=== PATIENT | female | born 2000 | race Caucasian/White ===

== ENCOUNTER → 2019-12-06 10:21 | Outpatient (BNVA) | payer MEDICAID, SELFPAY | PROVIDERS: Visit Provider Nurse Practitioner Women's Health | DX: O99.013 Anemia complicating pregnancy, third trimester (principal) | CPT/HCPCS: 82950; 84315; 85025 ==

== ENCOUNTER → 2019-12-19 15:04 | Outpatient (BNVA) | payer MEDICAID, SELFPAY | PROVIDERS: Visit Provider Obstetrics & Gynecology | DX: Z34.90 Encounter for supervision of normal pregnancy, unspecified, unspecified trimester (principal) | CPT/HCPCS: 81003; 84315 ==

== ENCOUNTER → 2020-01-03 14:07 | Outpatient (BNVA) | payer MEDICAID, SELFPAY | PROVIDERS: Visit Provider Obstetrics & Gynecology Female Pelvic Medicine and Reconstructive Surgery | DX: Z34.90 Encounter for supervision of normal pregnancy, unspecified, unspecified trimester (principal) | CPT/HCPCS: 81003 ==

== ENCOUNTER → 2020-01-17 14:36 | Outpatient (BNVA) | payer MEDICAID, SELFPAY | PROVIDERS: Visit Provider Obstetrics & Gynecology Female Pelvic Medicine and Reconstructive Surgery | DX: Z34.03 Encounter for supervision of normal first pregnancy, third trimester (principal) | CPT/HCPCS: 81003 ==

== ENCOUNTER → 2020-01-30 10:53 | Outpatient (BNVA) | payer MEDICAID, SELFPAY | PROVIDERS: Visit Provider Obstetrics & Gynecology | DX: Z34.03 Encounter for supervision of normal first pregnancy, third trimester (principal) | CPT/HCPCS: 84315; 87081 ==

== ENCOUNTER 2020-02-05 16:53 | Observation (INO) | payer MEDICAID, SELFPAY ==
[2020-02-05 17:10] VITALS: BP 0/0; PULSE 80
[2020-02-05 17:12] VITALS: BP 114/63; PULSE 79
[2020-02-05 17:25] VITALS: BMI 29.7
[2020-02-05 18:52] VITALS: BP 131/61; PULSE 75
[2020-02-05 19:43] VITALS: BP 131/65; PULSE 75; RESP 16; TEMP 36.5
[2020-02-06 06:26] LABS: Nitrazine Paper, PH Negative
== END 2020-02-05 19:50 | disposition home or self-care (01) ==
PROVIDERS: Admitting Provider Obstetrics & Gynecology; Visit Provider Obstetrics & Gynecology
DX: O26.899 Other specified pregnancy related conditions, unspecified trimester (principal); Z3A.00 Weeks of gestation of pregnancy not specified; R10.9 Unspecified abdominal pain
CPT/HCPCS: 83986; 99211; G0378; G0379

== ENCOUNTER → 2020-02-06 08:22 | Outpatient (BNVA) | payer MEDICAID, SELFPAY | PROVIDERS: Visit Provider Obstetrics & Gynecology | DX: Z01.89 Encounter for other specified special examinations (principal) | CPT/HCPCS: 84315 ==

== ENCOUNTER 2020-02-11 15:30 | Inpatient (IN) | payer MEDICAID, SELFPAY ==
[2020-02-11] VITALS (26 sets, daily range): BP systolic 0–128; BP diastolic 0–79; PULSE 43–118; RESP 16–25; TEMP 36.3–37; O2SAT 67–100; BMI 29.5
[2020-02-11] MEDS: lactated ringers 1,000 ML 999 ML IV (15:30)
[2020-02-11] MEDS: terbutaline 1 mg/mL INJ 0.25 MG SUBCUT (15:38)
[2020-02-11] MEDS: citric acid-sodium citrate 30 mL UDC PO (15:57)
[2020-02-11] MEDS: metoclopramide 5 mg/mL SDV 2 mL 10 MG IVP (15:58)
[2020-02-11] MEDS: famotidine 20 mg/2 mL INJ IVP (15:58)
--- NOTE | 2020-02-11 16:04 | P.HP_ITS ---
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 She presented to labor and delivery with the complaint of abdominal and low back pain. She states she had been having contractions for the last 2 to 3 days but they became severe today. She states the pain she is having is more constant than coming and going. She describes it a 10 out of 10 in intensity. It is present in her lower abdomen and into her lower back. She denied vaginal bleeding. She denied leaking of fluid. She reported baby had been moving well. PAST MEDICAL HISTORY: Patient denies any medical problems in the way of high blood pressure, diabetes, heart, lung, liver, or kidney problems. PAST SURGICAL HISTORY: Tonsillectomy FAMILY HISTORY: Family history of hypertension, diabetes, and coronary artery disease. SOCIAL HISTORY: Patient denies tobacco, current alcohol, or drug use. Review of Systems Const: Denies: fever or chills ENMT: Denies: throat pain or nasal congestion Card: Denies: chest pain, palpitations or lightheadedness Resp: Denies: shortness of breath, productive cough, non-productive cough or wheezing GI: Reports: abdominal pain; Denies: nausea or vomiting : Denies: painful urination, genital itching, vaginal bleeding or vaginal discharge Neuro: Denies: headache, dizziness or seizure-like activity Psych: Denies: anxiety or depression Endo: Denies: excessive urination or excessive thirst Huseyin/Lymph: Denies: easy bruising or easy bleeding Medications/Allergies Allergies Allergy/AdvReac Type Severity Reaction Status Date / Time No Known Allergies Allergy Verified 02/06/20 08:01 Care RIGO Calculator Estimated Delivery Date Method Current WG Current Estimate 02/26/20 Ultrasound #2 37w 6d Other Estimates 12/26/19 Ultrasound #1 46w 5d Expected Delivery Route/Plan Vaginal Specific Issues/Plans * Anemia-on iron OB Visit Log Initial Weight: 161 lb Date -?-?-?-?-?-?-?-?-?-?-?- EGA Weight BP Albumin -?-?-?-?-?-?-?-?-?-?-?-?- Glucose Nitrate -?-?-?-?-?-?-?-?-?-?-?-?- Blood Fun Ht PRES HR MVMT -?-?-?-?-?-?-?-?-?-?-?-?- Edema Dilation Effacement -?-?-?-?-?-?-?-?-?-?-?- Station 07/18/19 -?-?-?-?-?-?-?-?-?--?-?- 8w 1d (-161 lb) -?-?-?-?-?-?-?-?-?-?-?-?- -?-?-?-?-?-?-?-?-?-?-?-?- -?-?-?-?-?-?-?-?-?-?-?-?- -?-?-?-?-?-?-?-?-?-?-?- 08/01/19 -?-?-?-?-?-?-?-?-?-?-?- 10w 1d 159 lb (-2 lb) 122/70 NORMAL NEGATIVE -?-?-?-?-?-?-?-?-?-?-?-?- NEGATIVE -?-?-?-?-?-?-?-?-?-?-?-?- 173BPM/PRESENT BY GWENDOLYN -?-?-?-?-?-?-?-?-?-?-?-?- NEGATIVE NOT EXAMINED -?-?-?-?-?-?-?-?-?-?-?- 08/08/19 -?-?-?-?-?-?-?-?-?-?-?- 11w 1d 159 lb 6.08 oz (-1 lb 9.92 oz) 122/82 NORMAL NEGATIVE -?-?-?-?-?-?-?-?-?-?-?-?- NEGATIVE -?-?-?-?-?-?-?-?-?-?-?-?- 165BPM/ PRESENT BY GWENDOLYN -?-?-?-?-?-?-?-?-?-?-?-?- NEGATIVE -?-?-?-?-?-?-?-?-?-?-?- 08/18/19 -?-?-?-?-?-?-?-?-?-?-?- 12w 4d 157 lb (-4 lb) 120/72 NORMAL NEGATIVE -?-?-?-?-?-?-?-?-?-?-?-?- NEGATIVE -?-?-?-?-?-?-?-?-?-?-?-?- 158BPM/PRESENT BY DOPTONE -?-?-?-?-?-?-?-?-?-?-?-?- NEGATIVE CLOSED UNEFFACED -?-?-?-?-?-?-?-?-?-?-?- 09/14/19 -?-?-?-?-?-?-?-?-?-?-?- 16w 3d 157 lb 4 oz (-3 lb 12 oz) 111/68 NORMAL NEGATIVE -?-?-?-?-?-?-?-?-?-?-?-?- NEGATIVE -?-?-?-?-?-?-?-?-?-?-?-?- 164BPM/PRESENT BY DOPTONE NO T DETECTED -?-?-?-?-?-?-?-?-?-?-?-?- NEGATIVE -?-?-?-?-?-?-?-?-?-?-?- 10/11/19 -?-?-?-?-?-?-?-?-?-?-?- 20w 2d 157 lb (-4 lb) 120/80 NORMAL NEGATIVE -?-?-?-?-?-?-?-?-?-?-?-?- NEGATIVE -?-?-?-?-?-?-?-?-?-?-?-?- 147BPM/PRESENT BY DOPTONE TN ESENT -?-?-?-?-?-?-?-?-?-?-?-?- NEGATIVE -?-?-?-?-?-?-?-?-?-?-?- 11/08/19 -?-?-?-?-?-?-?-?-?-?-?- 24w 2d 160 lb 6.4 oz (-9.6 oz) 118/68 NORMAL NEGATIVE -?-?-?-?-?-?-?-?-?-?-?-?- NEGATIVE -?-?-?-?-?-?-?-?-?-?-?-?- 23CM 143BPM/PRESENT BY REJIE TN ESENT -?-?-?-?-?-?-?-?-?-?-?-?- NEGATIVE -?-?-?-?-?-?-?-?-?-?-?- 12/06/19 -?-?-?-?-?-?-?-?-?-?-?- 28w 2d 164 lb (+3 lb) 118/62 -?-?-?-?-?-?-?-?-?-?-?-?- -?-?-?-?-?-?-?-?-?-?-?-?- 30.5CM 146BPM/PRESENT BY GWENDOLYN P RESENT -?-?-?-?-?-?-?-?-?-?-?-?- NEGATIVE -?-?-?-?-?-?-?-?-?-?-?- 12/19/19 -?-?-?-?-?-?-?--?-?-?-?- 30w 1d 166 lb 4 oz (+5 lb 4 oz) 122/82 NEGATIVE NEGATIVE -?-?-?-?-?-?-?-?-?-?-?-?- NEGATIVE -?-?-?-?-?-?-?-?-?-?-?-?- 29CM 175BPM/PRESENT BY DOPTONE -?-?-?-?-?-?-?-?-?-?-?-?- NEGATIVE -?-?-?-?-?-?-?-?-?-?-?- 01/03/20 -?-?-?-?-?-?-?-?-?-?-?- 32w 2d 170 lb (+9 lb) 110/70 -?-?-?-?-?-?-?-?-?-?-?-?- -?-?-?-?-?-?-?-?-?-?-?-?- 33CM 132BPM/PRESENT BY GWENDOLYN JORGENSEN -?-?-?-?-?-?-?-?-?-?-?-?- NEGATIVE -?-?-?-?-?-?-?-?-?-?-?- 01/14/20 -?-?-?-?-?-?-?-?-?-?-?- 33w 6d -?-?-?-?-?-?-?-?-?-?-?-?- -?-?-?-?-?-?-?-?-?-?-?-?- -?-?-?-?-?-?-?-?-?-?-?-?- -?-?-?-?-?-?-?-?-?-?-?- 01/17/20 -?-?-?-?-?-?-?-?-?-?-?- 34w 2d 167 lb (+6 lb) 110/70 neg -?-?-?-?-?-?-?-?-?-?-?-?- neg -?-?-?-?-?-?-?-?-?-?-?-?- 34 136 Present -?-?-?-?-?-?-?-?-?-?-?-?- negative Not examined -?-?-?-?-?-?-?-?-?-?-?- 01/30/20 -?-?-?-?-?-?-?-?-?-?-?- 36w 1d 173 lb (+12 lb) 106/70 Neg (Negative ) -?-?-?-?-?-?-?-?-?-?-?-?- Norm (Normal) Negative (Negat ryan) -?-?-?-?-?-?-?-?-?-?-?-?- Neg (Negative) 36 Cephalic 134 active -?-?-?-?-?-?-?-?-?-?-?-?- absent Closed 0 -?-?-?-?-?-?-?-?-?-?-?- -3 02/01/20 -?-?-?-?-?-?-?-?-?-?-?- 36w 3d -?-?-?-?-?-?-?-?-?-?-?-?- -?-?-?-?-?-?-?-?-?-?-?-?- -?-?-?-?-?-?-?-?-?-?-?-?- -?-?-?-?-?-?-?-?-?-?-?- 02/06/20 -?-?-?-?-?-?-?-?-?-?-?- 37w 1d 172 lb (+11 lb) 110/80 Neg (Negative ) -?-?-?-?-?-?-?-?-?-?-?-?- Norm (Normal) Negative (Negat ryan) -?-?-?-?-?-?-?-?-?-?-?-?- 1+ (Negative) H 37 Cephalic 147 active -?-?-?-?-?-?-?-?-?-?-?-?- absent 1.5 60 -?-?-?-?-?-?-?-?-?-?-?- -2 02/11/20 -?-?-?-?-?-?-?-?-?-?-?- 37w 6d 0/0 0/0 104/67 -?-?-?-?-?-?-?-?-?-?-?-?- -?-?-?-?-?-?-?-?-?-?-?-?- -?-?-?-?-?-?-?-?-?-?-?-?- -?-?-?-?-?-?-?-?-?-?-?- Notes Visit Date: 02/11/20 No visit notes to display Visit Date: 02/06/20 LORA@ 37w1d-----> mild anemia compliant with [id number] will accept a transfusion if needed; labor consents reviewed; plans on trying to get- Tdap and flu vaccine today; GBS negative; labor precautions reviewed-favorable cervix Antonette Goldberg MD on 02/06/20 Visit Date: 02/01/20 No visit notes to display Visit Date: 01/30/20 LORA@ 36w1d-----> discomforts of -symptomatic management reviewed; GBS done; encourage ambulation after 37 weeks; contraception, Tdap, faculty physician reviewed Antonette Goldberg MD on 02/05/20 Visit Date: 01/17/20 Patient is doing well we did discuss signs and symptoms of labor and when to need to return to labor and delivery. ?We discussed potential development of a birthing plan discussed the need to attend anesthesia consult and recommend she tour labor and delivery. Patient is to return in 2 weeks to check group B strep. Visit Date: 01/14/20 PRELOAD NOTE Roxi Mars RN on 01/14/20 Visit Date: 01/03/20 [facility]A @ 32w3d - labor precautions and kick counts discussed - Discussed and encouraged flu and Tdap - education classes discussed and encouraged - Anesthesia evaluation discussed and encouraged - care handout provided. RTC: 2 weeks Visit Date: 12/19/19 No visit notes to display Visit Date: 12/06/19 [facility] @ 28w3d - labor precautions and kick counts discussed - Discussed and encouraged flu and Tdap by 32 weeks - education classes discussed and encouraged - Anesthesia evaluation discussed and encouraged - [place] care handout provided. - Depression; scored 10 on EDPS today; doing well without medication - GCT, CBC today. Visit Date: 11/08/19 LORA @ 24.3 WG - Flu vaccine discussed and encouraged. - labor precautions and kick counts discussed. - education classes discussed and encouraged; schedule provided. - Symptomology of late second trimester discussed - CBC, GCT at next visit. O positive blood type Visit Date: 10/11/19 L[facility]A @ 20w3d------> no complaints; anatomy sonogram within normal limits; circumcision, contraception, faculty physician discussed; movements reviewed; questions answered Visit Date: 09/14/19 [facility] at 16-4/7 WG. ?Reports still having some nausea - usual course for nausea and vomiting discussed. ?Reports occasional headaches - headache treatments discussed. ?Flu vaccine recommended. ?Quad screen discussed and declined. ?Ultrasound for anatomic survey in approximately 4 weeks. Visit Date: 08/18/19 OB exam at 12w5d------> no complaints ; labs within normal limits; gonorrhea and Chlamydia done today; quad screen if desires at next visit Visit Date: 08/08/[address] visit @ 11w2d-----> no complaints-first trimester symptomatology discussed with patient; breast-feeding, blood transfusion, control discussed; labs discussed and drawn-patient undecided about panorama and cystic fibrosis; gonorrhea and Chlamydia at next visit; dating ultrasound reviewed with patient. Visit Date: 08/01/19 OBI @ 10.2 WG---------> 19 y/o with a unknown LMP, EDC of 02/25/2020 based on 6 week ultrasound. - Irregular menses; ultrasound confirms IUP and sets EDC - Unknown varicella hx; collect IgG with labs - Constipation; dietary and medical management discussed - Nausea; dietary and medical management discussed ? -Ob packet provided. Reviewed routine vist schedule, labs, approved medications in , discussed the importance of avoiding nicotine/alcohol/drugs and the effects this has on her and the , and when to notify the doctor. Medical and obstetrical history reviewed. ? -Continue vitamins. - labs at next visit; discussed NIPT, QUAD, AFP, CF. All questions answered to her satisfaction. Greater than 50% of the visit was spent in counseling and coordinating obstetrical care. Total visit time: 30 minutes. Visit Date: 07/18/19 No visit notes to display Vitals/I&O/Wt Last Vital Signs Pulse 53 L 02/11/20 15:29 BP 104/67 02/11/20 15:29 Pulse Ox 67 L 02/11/20 15:44 Weight 172 pounds, stated height 5 foot 4 inches: Physical Exam Const: COMMON NORMALS: average body habitus, alert and well nourished GENERAL APPEARANCE: cooperative and well developed ORIENTATION/CONSCIOUSNESS: Yes oriented to person, Yes oriented to place and Yes oriented to time Resp: COMMON NORMALS: normal respiratory effort and clear to auscultation bilaterally AUSCULTATION: clear to auscultation bilaterally Cardio: COMMON NORMALS: regular rate, regular rhythm, no gallops, no murmurs and no rub RATE: regular rate RHYTHM: regular rhythm GI: COMMON NORMALS: soft to palpation, non-tender, no hepatosplenomegaly and no masses (Except for gravid uterus.) AUSCULTATION: Yes normoactive bowel sounds PALPATION: Yes soft, Yes no hepatosplenomegaly and No hernia : EXTERNAL FEMALE EXAM: No hernia OTHER: - External genitalia: Normal in appearance with no lesions seen. Normal hair distribution. Anus/perineum: No perineal lesions noted. Urethral meatus: Normal in size and location with no lesions or prolapse noted Urethra: Nontender with no palpable masses noted. Bladder: Nontender with no palpable masses noted. Vagina: No palpable masses. No blood noted on exam. Cervix: 75% effaced, 2 cm dilated, soft. Membranes intact. Uterus: Mildly tender. Neuro: SENSORIUM/ORIENTATION: Yes alert, Yes oriented to person, Yes oriented to place and Yes oriented to time Psych: COMMON NORMALS: affect normal MOOD & AFFECT: Yes euthymic mood Skin: COMMON NORMALS: no rashes or lesions noted GENERAL SKIN EXAM: no rashes or lesions noted Data Other data: MONITORING: On initial admission to the unit and placement on the monitoring heart rate was in the 90s and lower. After approximately 6 minutes heart rate was back up to the 140s and it slowly increased up to the 150s. She continued to have decelerations. Contractions were not being able to nut picker due to patient position. She had minimal to no variability. Due to the possibility of hyperstimulation, she received a dose of Brethine which did not appear to affect contractions heart rate increased to the 160s to 170s following the Brethine. A&P Assessment and plan (1) Non-reassuring heart tones complicating , antepartum: at 37-6/7 weeks gestation. She has nonreassuring heart tones. Initially had a several minute deceleration and has now been having recurrent decelerations but I am unable to determine if these are lates or not as contractions or not being adequately picked up. She has been tried with Brethine with no significant change. She had been placed on oxygen and received fluid bolus. Decelerations have decreased but patient has had minimal to no variability. As a result, recommendations are to proceed to a section. Risks of surgery was discussed with the patient including bleeding, infection, and injury to intra-abdominal organs including bowel, bladder, blood vessels, nerves, and ureters. Questions were answered. Patient agrees to proceed with c esarean section. Status: Acute Code(s): O36.8390 - Maternal care for abnormalities of the heart rate or rhythm, unspecified trimester, not applicable or unspecified Attestations Medical Necessity Statement*: Patient admitted for labor and having a Coding Level of Care Code Acute Oncology Physician for Chg Fwd Diagnoses Non-reassuring heart tones complicating , antepartum O36.8390
[2020-02-11 16:09] LABS: Basophils # 0.1 10^3/uL (0.0-0.1); Basophils % 0.2 %; Eosinophils # 0.2 10^3/uL (0.0-0.8); Hematocrit 36.5 % (37.0-47.0); Lymphocytes # 2.6 10^3/uL (1.5-6.5); Lymphocytes % 12.7 %; Mean Corpuscular HGB Conc 30.1 g/dL (30.0-36.0); Mean Corpuscular Hemoglobin 25.8 pg (28.0-34.0); Mean Corpuscular Volume 85.7 fL (81-99); Mean Platelet Volume 13.2 fL (7.4-10.4); Monocytes # 0.8 10^3/uL (0.2-0.9); Monocytes % 3.9 %; Neutrophils # 16.6 10^3/uL (1.8-8.0); Nucleated Red Blood Cells % 0 %; Platelet Count 179 10^3/cmm (130-400); Red Blood Count 4.26 10^6/uL (4.1-5.3); Red Cell Distribution Width 14.7 % (12.1-15.1); White Blood Count 20.5 10^3/uL (4.5-13.0)
--- NOTE | 2020-02-11 16:11 | ANES.PREANE2 ---
Pre-Anesthetic Assessment Pre-Anesthetic Assessment: Height/Weight: Height 1.63 m Pulse BP Pulse Ox 53 L 104/67 67 L 02/11/20 15:29 02/11/20 15:29 02/11/20 15:44 Preop Diagnosis: nonreassuring FHT Proposed Procedure: Last Intake: 10:00 Social: Social History: No alcohol and No tobacco Exam: Pre-Anes Outpt Exam: alert, oriented x 3, clear to auscultation bilaterally and regular rate & rhythm Airway: Submandibular: WNL Cervical ROM: WNL MP: 2 Dentition: Full History/ROS: No significant history except as noted and No significant complaints Pulmonary: Pulmonary: None reported CV/HEM: CV/HEM: None reported : : None reported Hepatic: Hepatic: None reported GI: GI: None reported Metabolic: Metabolic: None reported Musc/skel: Musc/skel: None reported Neuropsych: Neuropsych: None reported Anesthetic Plan: ASA status: 2 Anesthesia: Anesthesia Evaluation and Regional (specify below) Other: SAB Risk of > 500 ml blood loss (7ml/kg in children): Yes, adequate IV access and fluids planned Meds/Allergies Current Medications: Current Medications Generic Name Dose Route Start Last Admin Trade Name Freq PRN Reason Stop Dose Admin Lactated Ringer's 1,000 mls @ 999 m ls/hr 02/11/20 15:34 02/11/20 15:30 Lactated Ringers IV 02/11/20 16:34 999 mls/hr .Q1H1M ONE Administration PFSH Anesthesia PFSH: Social History Smoking and tobacco status: never smoked Alcohol intake: former Former alcohol use details: Social use once or twice monthly prior to preganncy. 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 Data Anesthesia Cardiac Studies: No Data to Display
[2020-02-11 16:47] LABS: Slide Review Slide Review Perform
--- NOTE | 2020-02-11 17:29 | PM.OP ---
Operative Report Date of procedure: February 11, 2020 Pre-op Diagnosis: Nonreassuring FHT in third trimester, at 37-6/7 weeks gestation Post-op Diagnosis: Nonreassuring heart tones, at 37-6/7 weeks gestation, Viable male Procedure Done: Primary low transverse section. Specimens removed/disposition: None Surgeon: Valentin Cedillo Medical Records Manager: None Anesthesia: Other (Spinal) Estimated blood loss (mL): 800 IV fluids (mL): 2,000 Complications: None Findings: 1. Viable, male infant, cephalic presentation, weighing 6 lbs 7-1/2 oz (2920 g) with Apgars of 2 at 1 minute, 7 at 5 minutes, and 7 at 10 minutes. 2. Normal appearing uterus, tubes, and ovaries. Brief History: Patient is a 19-year-old white female 1, para 0 with an unknown LMP and an EDC of 02/25/2020 based on a 6-week ultrasound, which placed her at 37-6/7 weeks gestation. She presented to labor and delivery with a complaint of lower abdominal and back pain. She stated she been having contractions for the last 2 to 3 days but they became severe earlier today. Pain was more constant now and located in the lower abdomen and lower back. She rated it as a 10 out of 10 in intensity. She denied bleeding or leaking of fluid. On initial placement of monitoring, heart rate was in the 90s and lower. After approximately 6 minutes the heart rate came back up to the 140s and slowly increased up to the 150s. She then had a very flat tracing with continued decelerations. The decelerations eventually went away but continued to have no variability with intermittent episodes of decelerations. Since she was still distant from delivery and due to the baby's heart rate being nonreassuring, decision was made to proceed to a section. Baby was looking better at the time it was taken off the monitor to go to the operating room. As a result decision was made to go proceed with a spinal for anesthesia. Procedure: Patient was taken to the operating room where spinal anesthesia was quickly obtained. On laying the patient down, heart rate was noted to be in the 60s. Patient was in dorsal supine position with a leftward tilt. Roth catheter and sequential compression boots had been placed prior to starting the case. Betadine was poured over the abdomen and drape placed. A Pfannenstiel skin incision was made with a knife and carried down to the underlying fascia with the knife. Fascia was incised in the midline with the knife and extended laterally with Fuller scissors. Superior aspect of the fascia was grasped with Everett clamps, elevated, and sharply and bluntly dissected. The inferior aspect of the fascia was grasped with Everett clamps, elevated, and sharply and bluntly dissected. The rectus muscles were in the midline. Peritoneum was sharply entered. Peritoneal incision was extended both superiorly and inferiorly with good visualization of the bladder. Bladder blade was inserted. The vesicouterine peritoneum was tented up and sharply entered. It was extended laterally and the bladder flap was created digitally. Bladder blade was reinserted. A transverse incision was made with the knife in the lower uterine segment. Clear fluid was obtained upon entry into the uterine cavity. The infant's head was delivered and one loop of loose nuchal cord was noted and easily reduced. The rest of the infant delivered atraumatically. Nose and mouth were suctioned with bulb suction. Cord was clamped and cut and the infant was handed off to Dr. Perae and the waiting nurses. Cord blood was obtained. Placenta was delivered via uterine massage. No evidence of abruption seen. Patient received 20 units of Pitocin in the IV fluids. The uterus was exteriorized and cleared of clots and debris. The uterine incision was closed in a running locking fashion using 0 Vicryl suture. The incision was imbricated using 0 Vicryl suture in a horizontal mattress fashion. The incision was inspected and noted to be hemostatic. Posterior cul-de-sac was thoroughly irrigated and cleared of clots and blood. The uterus was returned to the abdomen. The uterine incision was irrigated and noted to be hemostatic. The gutters were cleared of clots and blood. The rectus muscles and peritoneum were reapproximated in the midline using interrupted stitches of 2-0 Vicryl suture. The muscle layer was irrigated and noted to be hemostatic. The fascia was reapproximated using 0 Vicryl suture in a running fashion. The subcutaneous layer was irrigated and brought to hemostasis using electrocautery. It was reapproximated using 3-0 plain suture in an interrupted fashion. Skin was reapproximated using 4-0 Vicryl suture in a subcuticular fashion. Steri-Strips were applied. Patient tolerated the procedures well. Sponge, needle, and instrument counts were correct. Time was 16:23. Baby was delivered at 16:25. DRAINS: Roth catheter POSTOPERATIVE STATUS: The patient was left to recover in satisfactory condition
[2020-02-11 18:41] LABS: Amphetamines Screen Urine Negative (Negative); Barbiturates Screen Urine Negative (Negative); Benzodiazepines Screen Urine Negative (Negative); Cocaine Screen Urine Negative (Negative); Opiate Screen Urine Negative (Negative); PCP Screen Urine Negative (Negative); THC Screen Urine Negative (Negative)
--- NOTE | 2020-02-11 20:11 | PC.NURSE ---
Urgent section called at 1559 Room time of 1608 Spinal placed and patient laid back on to OR table Doppler of FHT at 1620- FHT noted to be in the 80s and then gradually decreased to 60s over 30 seconds STAT section called at this time by Dr Cedillo. Betadine x2 bottles poured over patient's abdomen, no time out performed. APGARS 2, 7, 7
[2020-02-11] MEDS: ketorolac 30 mg/mL INJ IVP (23:06)
[2020-02-11] MEDS: dextrose 5%-lactated ringers 1,000 ML 125 ML IV (23:06)
[2020-02-12 01:00] VITALS: BP 117/66; PULSE 71; RESP 18
[2020-02-12 02:30] VITALS: BP 119/77; PULSE 78; RESP 16
[2020-02-12 04:48] VITALS: BP 119/73; PULSE 71; RESP 16
[2020-02-12 07:36] LABS: Hematocrit 29.1 % (37.0-47.0); Mean Corpuscular HGB Conc 30.9 g/dL (30.0-36.0); Mean Corpuscular Hemoglobin 26.2 pg (28.0-34.0); Mean Corpuscular Volume 84.6 fL (81-99); Platelet Count 175 10^3/cmm (130-400); Red Blood Count 3.44 10^6/uL (4.1-5.3); Red Cell Distribution Width 14.6 % (12.1-15.1); White Blood Count 18.1 10^3/uL (4.5-13.0)
--- NOTE | 2020-02-12 07:46 | PM.PN ---
Subjective Subjective: Interval history: Patient reports some left shoulder discomfort this morning. Denies any shortness of breath or other chest pains. Denies lightheadedness or dizziness with ambulation. Reports tolerating clear liquids without nausea or vomiting. Reports pain is been well controlled with the Duramorph. Denies passing flatus. States catheter was taken out this morning. Vitals/I&O/Wt Last Vital Signs Temp 97.7 F 02/11/20 20:50 Pulse 71 02/12/20 04:48 Resp 16 02/12/20 04:48 BP 119/73 02/12/20 04:48 Pulse Ox 98 02/11/20 20:00 02/11/20 02/12/20 02/12/20 22:59 06:59 14:59 Intake Total 1999 Output Total 935 / 935 1760 / 2695 Balance 1065 / 1065 -1760 / -695 Weight last 48 hrs Weight 172 lb Physical Exam Const: COMMON NORMALS: no apparent distress, average body habitus, alert and well nourished GENERAL APPEARANCE: well developed ORIENTATION/CONSCIOUSNESS: Yes oriented to person, Yes oriented to place and Yes oriented to time GI: COMMON NORMALS: soft to palpation, non-tender, no hepatosplenomegaly and no masses (Except for uterus being approximately 2 fingerbreadths below the umbilicus) INSPECTION: Yes incision (Dressing dry) AUSCULTATION: Yes normoactive bowel sounds PALPATION: Yes soft, Yes no hepatosplenomegaly and No hernia : EXTERNAL FEMALE EXAM: No hernia Extremity: NARRATIVE EXTREMITY EXAM: Left shoulder: No tenderness with passive flexion, extension, abduction, or abduction. Reported tenderness with abduction and abduction with resistance. Also with pushing upwards on the shoulder resulted in tenderness. No tenderness of the actual joint with palpation or with palpation of the musculature. Neuro: SENSORIUM/ORIENTATION: Yes alert, Yes oriented to person, Yes oriented to place and Yes oriented to time Psych: COMMON NORMALS: affect normal MOOD & AFFECT: Yes euthymic mood Urinary Catheter Management^: Roth: Cath Placed During This Visit: yes, but has since been removed by the nurse Reason for Continuing Indwelling Catheter: Perioperative Use in Selected Surgeries Urinary Catheter Date of Insertion: 02/11/20 Urinary Catheter Time of Insertion: 16:20 Date Urinary Catheter Removed: 02/12/20 Time Urinary Catheter Discontinued: 06:00 Data : 02/12/20 07:15 A&P Assessment and plan (1) Non-reassuring heart tones, delivered, current hospitalization: Postoperative day 1, status post primary for nonreassuring heart tones. Overall, patient is doing well. Patient may increase activities as tolerated. May shower. Patient to be started on scheduled oral ibuprofen. As Duramorph wears off today, start [place]. Status: Acute Code(s): O76 - Abnormality in heart rate and rhythm complicating labor and delivery (2) Left shoulder pain: Based on exam, suspect musculoskeletal causes. Start scheduled anti-inflammatories. Status: Acute Code(s): M25.512 - Pain in left shoulder Attestations Medical Necessity Statement*: Patient is status post section, approximately 12 hours out from surgery. She is still not passing flatus and is on clear liquids. Coding Level of Care Code Acute Tube Tester for Javad Winchester Diagnoses Non-reassuring heart tones, delivered, current hospitalization O76 Left shoulder pain M25.512
[2020-02-12 08:00] VITALS: BP 106/68; PULSE 66; RESP 16; TEMP 36.8
[2020-02-12] MEDS: prenatal vitamin Capsule 1 CAP PO (09:29)
[2020-02-12] MEDS: docusate sodium 100 mg Capsule PO ×2 (09:29→17:03)
[2020-02-12] MEDS: HYDROcodone-acetaminophen 5-325 mg Tablet PO ×2 (10:25→17:03)
--- NOTE | 2020-02-12 10:30 | PC.NURSE ---
Pt in nursery with baby.
--- NOTE | 2020-02-12 11:24 | ANE.PACU2 ---
 Inpatient post-anesthesia follow up: Airway intact: Yes Vital signs: Temperature 98.3 F Pulse Rate 66 Respiratory Rate 16 Blood Pressure 106/68 Pulse Oximetry 98 Oxygen Delivery Me thod Room Air Oxygen Flow Rate Fraction of Inspir ed Oxygen Hydration adequate: Yes Nausea and vomiting: No Pain level: 2 Mental status: Baseline Additional Comments: No sign of infection at spinal site, no headache, up and walking without LE weakness, urinating since jurado removed
[2020-02-12 15:37] VITALS: BP 102/60; PULSE 71; RESP 16; TEMP 36.7
[2020-02-12 21:43] VITALS: BP 100/63; PULSE 87; RESP 16; TEMP 36.8; O2SAT 99
[2020-02-13 04:00] VITALS: BP 109/69; PULSE 76; RESP 15; TEMP 36.6; O2SAT 99
--- NOTE | 2020-02-13 07:03 | PM.DCS ---
Discharge Providers Date of Admission: 02/11/20 15:30 Date of Discharge: February 13, 2020 Attending Provider at Admission: Valentin Cedillo MD Attending Provider at Discharge: Valentin Cedillo MD Diagnoses at Discharge Discharge Diagnosis (1) Non-reassuring heart tones, delivered, current hospitalization: Status: Resolved (2) Left shoulder pain: Status: Resolved Reason for Visit Reason for Visit: Reason For Visit: contractions Hospital Course Hospital Course: Patient is a 19-year-old white female 1, para 0 with an unknown and an EDC of 02/25/2020 based on a 6-week ultrasound, which placed her at 37-6/7 weeks gestation. She had presented to labor and delivery with complaint of abdominal and lower pain. She states she been having contractions for the last 2 to 3 days but they became severe today. She she describes it as a constant pain that comes and goes in. As worst she rates it a 10 out of 10 in intensity. It is located in her lower abdomen radiating to her lower. Vaginal bleeding. She was reporting good movement. Placement of the patient on monitoring at arrival, heart rate was in the 90s and lower and this increased to 40s over the next 6 minutes with changes in position, high fluid bolus, and oxygen. Following this, there was minimal variability with repetitive mild decelerations which difficult to determine if these were late decelerations due to difficulty identifying contractions. The possibility of hyperstimulation, she received 1 dose of Brethine which did not appear to have any effect other than increased heart rate to the 160s to 170s. Due to the continued nonreassuring heart rate tracing, patient made to proceed to section. Prior to take the patient to the operating room, the monitoring had improved some with decelerations have gone away. As result, it was felt that patient could proceed with a spinal anesthetic rapidly placed. However, heart tones immediately after laying the patient down following spinal placement, heart rate was noted be again in the 60s and a was rapidly performed. Primary low transverse section was performed with the delivery of a male infant in a slight presentation weighing 6 lbs 7-1/2 oz (2920 g) with of 2 at 1 minute 7 at 5 minutes and 7 minutes. Fluid was clear at the time of with no evidence of abruption seen. Skin is intact with 16:23 with delivery time of 16:25. DAY 1 Patient reported left shoulder discomfort with pushing down on the arm. She denied any shortness of breath or other chest pain complaints. She denied lightheadedness or dizziness with ambulation. She reported tolerating liquids without nausea vomiting. She stated that her abdominal pain was well controlled with Duramorph. She denies he flatus. She was afebrile with stable vital signs. On examination of her left shoulder, she had discomfort with specific movements consistent with musculoskeletal pain. She was already receiving scheduled Toradol and was being switched scheduled Motrin. Roth catheter was removed that morning. Started passing flatus late in the day and diet was advanced. She was switched to oral pain medications later that day. DAY 2 Patient reports that her shoulder pain is doing better. States that the hydrocodone is not providing adequate pain relief. As a result, she was switched to Percocet and did better with this. She denies shortness of breath or chest pains. She reports tolerating a regular diet without nausea vomiting. She denies with urination. She reports passing flatus. She denies lightheadedness or dizziness with ambulation. She is requesting to be released from the hospital. Baby had been transferred to [facility] NICU in [place]. PHYSICAL EXAM See vitals and exam below. PLAN control options were discussed with patient and she wanted to start pills. Since she was (pumping), she was started on Bernadette. Discharge instructions were discussed with patient. She was to follow-up in the office in 2 and 6 weeks. She is discharged to home. Physical Exam Const: COMMON NORMALS: no apparent distress, average body habitus, alert and well nourished GENERAL APPEARANCE: well developed ORIENTATION/CONSCIOUSNESS: Yes oriented to person, Yes oriented to place and Yes oriented to time Resp: COMMON NORMALS: normal respiratory effort and clear to auscultation bilaterally AUSCULTATION: clear to auscultation bilaterally Cardio: COMMON NORMALS: regular rate, regular rhythm, no gallops, no murmurs and no rub RATE: regular rate RHYTHM: regular rhythm GI: COMMON NORMALS: soft to palpation, no hepatosplenomegaly and no masses (except for mildly tender uterus, ~ 2 fingerbreaths below navel) INSPECTION: Yes incision (clean, dry, intact with steri-strips present.) AUSCULTATION: Yes normoactive bowel sounds PALPATION: Yes soft, Yes tender (mild lower abdominal tenderness), Yes no hepatosplenomegaly and No hernia : EXTERNAL FEMALE EXAM: No hernia Extremity: GENERAL: No calf tenderness and Yes edema (trace to 1+ lower extremities) Neuro: SENSORIUM/ORIENTATION: Yes alert, Yes oriented to person, Yes oriented to place and Yes oriented to time Psych: COMMON NORMALS: affect normal MOOD & AFFECT: Yes euthymic mood Urinary Catheter Management^: Roth: Cath Placed During This Visit: yes, but has since been removed by the nurse Reason for Continuing Indwelling Catheter: Perioperative Use in Selected Surgeries Urinary Catheter Date of Insertion: 02/11/20 Urinary Catheter Time of Insertion: 16:20 Date Urinary Catheter Removed: 02/12/20 Time Urinary Catheter Discontinued: 06:00 Discharge Data Data Completed and Pending: Labs from last 24 hours 02/12/20 07:15 WBC 18.1 H RBC 3.44 L Hgb 9.0 L Hct 29.1 L MCV 84.6 MCH 26.2 L MCHC 30.9 RDW 14.6 Plt Count 175 MPV 13.0 H Vitals: Last Vital Signs Temp 97.8 F 02/13/20 04:00 Pulse 76 02/13/20 04:00 Resp 15 02/13/20 04:00 BP 109/69 02/13/20 04:00 Pulse Ox 99 02/13/20 04:00 Discharge Plan Discharge Patient Disposition: Home, Self-Care Condition: Stable Prescriptions: No Action No Known Home Medications RF: 0 norethindrone (contraceptive) [Brittany-BE] 0.35 mg tablet 0.35 mg PO DAILY Qty: 28 RF: 3 Discharge Orders: Discharge Order (Routine); Ordered 02/13/20 Ordered By: Valentin Cedillo Referrals: Valentin Cedillo MD [Physician] - 2 weeks (Please keep scheduled appointment on Wednesday, February 26, 2020 at 11:30 AM for your 2 week incision check with Dr. Cedillo. ) Antonette Goldberg MD [Physician] - 6 Weeks (Please keep scheduled appointment on Wednesday, March 25, 2020 at 10:30 AM for [address] up [address] Hollis. ) Discharge Diet: Regular Discharge Activity: Limit activity as instructed Patient Instructions: OB WHC, OB Discharge Report, OB Food/Drug Interaction Guide, OB Care at Home, OB Home Care, OB Proud Parent Packet Activity Restrictions/Additional Instructions: Ibuprofen 200 mg, 4 tablets three times a day as needed for pain MiraLax, follow instructions on bottle, as needed for constipation Had Rx for Percocet sent to pharmacy from office. Discharge Date/Time: 02/13/20 08:40 Discharge Attestations Time Spent in Discharge Care*: less than 30 min Quality Metrics Clinical Quality Measures During this hospital stay, did patient experience: None Coding Level of Care Code Acute Electrolytic De Scaler for Chg Fwd Diagnoses Non-reassuring heart tones, delivered, current hospitalization O76 Left shoulder pain M25.512
[2020-02-13] MEDS: prenatal vitamin Capsule 1 CAP PO (08:14)
[2020-02-13] MEDS: lanolin oint 7 gm 1 APPLIC TOPICAL (08:14)
[2020-02-13] MEDS: docusate sodium 100 mg Capsule PO (08:14)
[2020-02-13 08:16] VITALS: BP 102/69; PULSE 116; RESP 18; O2SAT 99
== END 2020-02-13 08:40 | disposition home or self-care (01) | DRG 788 ==
LOC: OBGYN 02-12 09:40 → OPOB 02-12 09:40
PROVIDERS: Admitting Provider Obstetrics & Gynecology; Visit Provider Obstetrics & Gynecology
PROC: 10D00Z1 Extraction of Products of Conception, Low, Open Approach (ICD-10-PCS; CPT 59514; principal; 2020-02-11 16:05)
DX: O76 Abnormality in fetal heart rate and rhythm complicating labor and delivery (principal); Z3A.37 37 weeks gestation of pregnancy; Z37.0 Single live birth; O69.81X0 Labor and delivery complicated by cord around neck, without compression, not applicable or unspecified
CPT/HCPCS: 12345; 36415; 51702; 59409; 80306; 85025; 85027; 96372; 96375; 99211; J0690; J1885; J2274; J2405; J2590; J2765; J3010; J3105; J3490; J7030

== ENCOUNTER → 2020-08-07 16:35 | Outpatient (BNVA) | payer MEDICAID, SELFPAY | PROVIDERS: Visit Provider Nurse Practitioner Women's Health | DX: Z01.419 Encounter for gynecological examination (general) (routine) without abnormal findings (principal) | CPT/HCPCS: 88175 ==

== ENCOUNTER → 2021-04-02 10:17 | Outpatient (BNVA) | payer BC, SELFPAY | PROVIDERS: Visit Provider Nurse Practitioner Women's Health | DX: N92.6 Irregular menstruation, unspecified (principal); Z30.42 Encounter for surveillance of injectable contraceptive | CPT/HCPCS: 84702 ==

== ENCOUNTER 2021-07-23 11:05 | Emergency (ER) | payer BC, SELFPAY ==
[2021-07-23 11:14] VITALS: BP 133/84; PULSE 79; RESP 16; TEMP 36.6; O2SAT 98; BMI 24.4
--- NOTE | 2021-07-23 11:21 | XR_ITS ---
WS: [id number] Portable AP upright chest, 07/23/2021 Clinical Data: pain left side of chest, chronic Comparison: None. Findings: No nodules, masses or effusions are seen. The heart is normal. The pulmonary vascularity is not increased. No pneumonia or pneumothorax is seen. XR/XR chest 1V portable [id number] Impression: Negative chest.
--- NOTE | 2021-07-23 11:22 | W.ED.GENADLT ---
HPI - General Adult General: Chief complaint: General Medical Stated complaint: CHRONIC intermittent chest pain Time Seen by Provider: 07/23/21 11:17 History of Present Illness: HPI narrative: Patient describes chest pain in the left lateral aspect of her chest been present since she was a young girl that happened intermittently over the years. She made through and had pain at times but none reported to her provider. Says she would just want to get checked out make sure there is nothing else going on serious in that area. Hurts with deep breaths MD complaint: Atypical chest pain Onset (ago): year(s) Location: chest Radiation: non-radiation Severity scale (1-10): 1 Quality: stabbing Pain Consistency: colicky Relieving factors: none Exacerbating factors: other (Breathing) Associated symptoms: Reports no associated symptoms; Deny chest pain, dyspnea, headache(s), nausea, rash or vomiting Review of Systems Narrative: Chest wall pain times year intermittent Const: Denies: fever(s), chills or body aches Eyes: Denies: change in vision or blurry vision ENMT: Denies: throat pain or nasal congestion Card: Denies: chest pain or dyspnea on exertion Resp: Denies: dyspnea, productive cough or non-productive cough GI: Denies: abdominal pain, nausea or vomiting Musc: Denies: extremity pain Skin/Breast: Denies: rash Neuro: Denies: headache(s) Psych: Denies: anxiety or depression Huseyin/Lymph: Denies: easy bruising PFSH ED PFSH: Medical History (Updated 04/02/21 @ 10:17 by Zandra Clark APN, CECI) Irregular menses No pertinent past medical history Denies diabetes, asthma, seizures, DVT/PE, hypertension Surgical History History of section, low transverse (~02/11/20) Primary lower transverse with Dr. Cedillo at [facility] in [facility]. Done for nonreassuring heart tracing. 2 layer closure. Hx of tonsillectomy (~2004) Family History (Updated 04/02/21 @ 09:38 by Yoon Almazan) Grandfather Diabetes PATERNAL Hypertension Maternal Grandmother Hypertension PATERNAL AND MATERNAL Diabetes MATERNAL CAD (coronary artery disease) MATERNAL Family/Other Patient denies medical problems Breast, cervical, uterine, ovarian, colon cancer, DVT/PE Diabetes Denies family history of Thyroid disease Stroke Social History Additional social history: - Tobacco use: Denies current or past use Alcohol use: Social alcohol use once or twice a month prior to finding out she is -none since then Drug use: Denies current or past use 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 Female Reproductive History: Date of last menstrual period: 07/08/21 Physical Exam Const: COMMON NORMALS: no acute distress, average body habitus and patient oriented x3 HENMT: COMMON NORMALS: normocephalic HEAD & SCALP: normal to inspection and normocephalic FACE & SINUS: normal facial exam Eye: COMMON NORMALS: conjunctivae normal GENERAL EYE: appearance normal, both eyes and all related structures CONJUNCTIVA: Yes conjunctivae normal Neck/C-Spine: COMMON NORMALS: no JVD Chest: COMMONS NORMALS: normal inspection of the chest OTHER: Tenderness left chest wall lateral to the breast on left side Resp: COMMON NORMALS: normal respiratory effort and clear to auscultation bilaterally AUSCULTATION: clear to auscultation bilaterally Cardio: COMMON NORMALS: no JVD, regular rate and regular rhythm RATE: regular rate RHYTHM: regular rhythm GI: COMMON NORMALS: Normal to inspection, nondistended, normoactive bowel sounds present Extremity: COMMON NORMALS: normal to inspection and full ROM Neuro: COMMON NORMALS: patient oriented x3 Course Vital Signs: Vital signs: Vital Signs Temperature 97.9 F 07/23/21 11:14 Pulse Rate 79 07/23/21 11:14 Respiratory Rate 16 07/23/21 11:14 Blood Pressure 133/84 07/23/21 11:14 Pulse Oximetry 98 07/23/21 11:14 Discharge Plan Discharge Prescriptions: No Action medroxyprogesterone [Depo-Provera] 150 mg/mL suspension IM RF: 0 Coding Level of Care Code ED Equine Dentist for Chg Ranulfo
[2021-07-23 12:03] LABS: Basophils % 0.5 %; Eosinophils # 0.1 10^3/uL (0.0-0.8); Eosinophils % 0.8 %; Hematocrit 42.2 % (37.0-47.0); Hemoglobin 13.2 g/dL (11.5-15.3); Lymphocytes # 2.8 10^3/uL (0.8-4.8); Lymphocytes % 33.2 %; Mean Corpuscular HGB Conc 31.3 g/dL (30.0-36.0); Mean Corpuscular Hemoglobin 25.9 pg (28.0-34.0); Mean Corpuscular Volume 82.9 fl (81-99); Mean Platelet Volume 10.6 fL (7.4-10.4); Monocytes # 0.5 10^3/uL (0.2-0.9); Monocytes % 6.4 %; Neutrophils # 5.01 10^3/uL (1.8-7.7); Neutrophils % 58.9 %; Nucleated Red Blood Cells % 0 %; Platelet Count 321 10^3/cmm (130-400); Red Blood Count 5.09 10^6/uL (4.1-5.3); Red Cell Distribution Width 15.1 % (12.1-15.1); White Blood Count 8.5 10^3/uL (4.0-10.0)
== END 2021-07-23 12:48 | disposition home or self-care (01) ==
PROVIDERS: Emergency Provider Nurse Practitioner Family
DX: R07.9 Chest pain, unspecified (principal)
CPT/HCPCS: 71045; 85025; 99282

== ENCOUNTER → 2022-03-24 11:29 | Outpatient (BNVA) | payer OTHER, SELFPAY | PROVIDERS: PCP Family Medicine; Visit Provider Family Medicine | DX: E01.0 Iodine-deficiency related diffuse (endemic) goiter (principal) | CPT/HCPCS: 84439; 84443; 85025 ==

== ENCOUNTER 2022-03-26 06:00 | Outpatient (CLI) | payer OTHER, SELFPAY | END 2022-03-26 06:01 | disposition home or self-care (01) | LOC: SPT 04-01 07:11 | PROVIDERS: PCP Family Medicine; Referring Provider Family Medicine; Visit Provider Family Medicine | DX: Z02.1 Encounter for pre-employment examination (principal) | CPT/HCPCS: 97161 ==

== ENCOUNTER 2023-05-06 08:55 | Outpatient (CLI) | payer MEDICAID, SELFPAY | END 2023-05-06 08:56 | disposition home or self-care (01) | PROVIDERS: Visit Provider Nurse Practitioner Women's Health | DX: Z34.03 Encounter for supervision of normal first pregnancy, third trimester (principal); Z72.51 High risk heterosexual behavior | CPT/HCPCS: 36415; 84702; 87491; 87591; 87661 ==

== ENCOUNTER → 2023-08-05 14:00 | Outpatient (BNVA) | payer MEDICAID, SELFPAY | PROVIDERS: Visit Provider Nurse Practitioner Women's Health | DX: Z12.4 Encounter for screening for malignant neoplasm of cervix (principal) | CPT/HCPCS: 88175 ==

== ENCOUNTER 2025-02-15 11:04 | Emergency (ER) | payer OTHER, SELFPAY ==
[2025-02-15] VITALS (7 sets, daily range): BP systolic 106–121; BP diastolic 64–74; PULSE 71–135; RESP 17–18; TEMP 36.4; O2SAT 95–100; BMI 30.9
[2025-02-15 12:39] LABS: Basophils % 0.2 %; Eosinophils # 0.4 10^3/uL (0.0-0.8); Eosinophils % 1.6 %; Hematocrit 48.6 % (36-47); Lymphocytes # 2.3 10^3/uL (0.8-4.8); Lymphocytes % 9.9 %; Mean Corpuscular HGB Conc 31.3 g/dL (30-55); Mean Corpuscular Hemoglobin 27.1 pg (27-33); Mean Corpuscular Volume 86.6 fl (85-98); Mean Platelet Volume 10.8 fL (7.4-10.4); Monocytes # 1.4 10^3/uL (0.2-0.9); Monocytes % 6.2 %; Neutrophils # 18.98 10^3/uL (1.8-7.7); Neutrophils % 81.7 %; Nucleated Red Blood Cells % 0 %; Platelet Count 326 10^3/cmm (157-399); Red Blood Count 5.61 10^6/uL (3.85-5.65); Red Cell Distribution Width 13.6 % (12.1-15.1); White Blood Count 23.21 10^3/uL (3.29-11.43)
[2025-02-15 12:42] LABS: HCG, Serum Qual Negative (Negative)
[2025-02-15 12:47] LABS: Alanine Aminotransferase 14 U/L (0-33); Albumin Level 4.4 g/dL (3.5-5.2); Alkaline Phosphatase 76 U/L (35-105); Blood Urea Nitrogen 11 mg/dL (6-20); Calcium 9.1 mg/dL (8.5-10.5); Carbon Dioxide 13 mmol/L (22-29); Chloride 107 mmol/L (98-107); Creatinine Clr Calc Pharmacy 126.9951; Globulin 3.2 g/dL (1.3-4.6); Glucose 103 mg/dL (65-115); Lipase 20 U/L (13-60); Osmolality Calculated 282 mOsm/kg (285-295); Sodium 136 mmol/L (136-145); Total Bilirubin 0.4 mg/dL (0.15-1.2); Total Protein 7.6 g/dL (6.6-8.7)
[2025-02-15 12:51] LABS: Anion Gap 20.3 (5-19); Aspartate Amino Transferase 21 U/L (0-32); Potassium 4.3 mmol/L (3.5-5.1)
--- NOTE | 2025-02-15 13:15 | CT_ITS ---
WS: [id number] CT ABDOMEN PELVIS TECHNIQUE: Noncontrast CT of the abdomen and pelvis with coronal and sagittal reformatted images. CLINICAL INFORMATION: Abdominal pain COMPARISON: None. DLP: 609.[address] scans at [facility] use at least one of these dose optimization techniques: automated exposure control; mA and/or kV adjustment per patient size (includes targeted exams where dose is matched to clinical indication); or iterative reconstruction. FINDINGS: Lung bases are well aerated. Normal noncontrast liver and spleen. Normal GE junction. Adrenal glands are normal. Normal noncontrast pancreas. Normal caliber abdominal aorta. Normal sigmoid colon. Normal appendix. No evidence of acute appendicitis. No free fluid in the abdomen or pelvis. CT/CT abdomen pelvis con [id number] IMPRESSION: 1. No acute findings in the abdomen or pelvis. 2. Normal appendix. No evidence of acute appendicitis.
--- NOTE | 2025-02-15 13:28 | US_ITS ---
WS: [id number] RIGHT UPPER QUADRANT ULTRASOUND HISTORY: RUQ abd pain COMPARISON: None available. Liver: 10.9 cm in length. Normal size liver and echogenicity. No bile duct dilatation or mass. Portal Vein: Normal hepatopetal flow with monophasic waveform. Gallbladder: Normally distended gallbladder with no stones or wall thickening. CBD: 0.3 cm Pancreas: Normal size and echogenicity. Right kidney: 10.1 cm in length. Normal size and echogenicity. No hydronephrosis or mass. Aorta and IVC: Unremarkable abdominal aorta and IVC. No ascites. US/US gall bladder [id number] IMPRESSION: Normal right upper quadrant ultrasound.
--- NOTE | 2025-02-15 13:49 | ED_ITS ---
HPI - Abdominal Pain 2 General: Chief Complaint: Abdominal Pain Stated Complaint: severe pain- ribs / back Time Seen by Provider: 02/15/25 13:12 History of Present Illness: 24-year-old female presents emergency ro om complaining of abdominal pain localizes right upper quadrant is not noticing the exacerbation relieves it. She has had similar symptoms in the past has had some nausea and vomiting acholic concepcion colored stools as well denies medic easy melena hematemesis cough cramps no dysuria urgency or frequency. Associated Symptoms: Reports nausea; Denies chills, constipation, diarrhea, dysuria, fever(s) and vomiting Related Data Previous Rx's ?Medication ?Instructions ?Recorded ibuprofen 800 mg tablet 800 mg PO Q8H PRN bleeding # 30 tabs 12/04/22 medroxyprogesterone 150 mg/mL See Rx Instructions .Rou te 09/15/24 intramuscular syringe .COMPLEX #1 mL hydrocodone 5 mg-acetaminophen 325 1 tab PO Q6H PRN pa in #20 tabs 02/15/25 mg tablet pantoprazole 40 mg tablet,delayed 40 mg PO DAILY 4 wee ks #30 tabs 02/15/25 release promethazine 25 mg tablet 25 mg PO Q6H PRN nausea and 02/15/25 vomiting #20 tabs Allergies Allergy/AdvReac Type Severity Reaction Status Date / Time No Known Allergies Allergy Verified 06/30/24 10:32 Review of Systems 2 Const: Denies: fever(s) or chills Card: Denies: chest pain Resp: Denies: dyspnea GI: Reports: abdominal pain and nausea; Denies: vomiting, diarrhea or constipation : Denies: dysuria, urinary frequency or urinary urgency Musc: Reports: back pain; Denies: neck pain Skin/Breast: Denies: rash PFSH ED 2 PFSH: Medical History Thyromegaly Major depressive disorder Irregular menses No pertinent past medical history Denies diabetes, asthma, seizures, DVT/PE, hypertension Surgical History History of section, low transverse (~02/11/20) Primary lower transverse with Dr. Cedillo at [facility] in [facility]. Done for nonreassuring heart tracing. 2 layer closure. Hx of tonsillectomy (~2004) Family History Grandfather Diabetes PATERNAL Hypertension Maternal Grandmother Hypertension PATERNAL AND MATERNAL Diabetes MATERNAL CAD (coronary artery disease) MATERNAL Hyperlipidemia Maternal Family/Other No problems noted. Denies family history of Colon cancer Ovarian cancer Breast cancer Uterine cancer Thyroid disease Stroke Physical Exam 2 Const: GENERAL APPEARANCE: cooperative ORIENTATION/CONSCIOUSNESS: Yes awake, Yes oriented to person, Yes oriented to place and Yes oriented to time HENMT: COMMON NORMALS: normocephalic, atraumatic and hearing grossly normal bilaterally HEAD & SCALP: normocephalic and atraumatic Resp: COMMON NORMALS: normal respiratory effort, No retractions, No use of accessory muscles and clear to auscultation bilaterally AUSCULTATION: clear to auscultation bilaterally Cardio: COMMON NORMALS: regular rate, regular rhythm and No murmurs present (Cardio) RATE: regular rate RHYTHM: regular rhythm GI: COMMON NORMALS: No hepatosplenomegaly present AUSCULTATION: Yes normoactive bowel sounds PALPATION: Yes Tenderness to palpation present (GI) Details: RUQ, No Guarding due to palpation present (GI) and Yes No hepatosplenomegaly present Extremity: COMMON NORMALS: normal to inspection, capillary refill normal, no clubbing, cyanosis or edema, no calf tenderness and no pedal edema Neuro: SENSORIUM/ORIENTATION: Yes oriented to person, Yes oriented to place and Yes oriented to time Skin: COMMON NORMALS: no rashes or lesions noted GENERAL SKIN EXAM: no rashes or lesions noted Course 2 Vital Signs: Vital signs: Vital Signs Temperature 97.6 F 02/15/25 11:28 Pulse Rate 80 02/15/25 16:53 Respiratory Rate 17 02/15/25 14:07 Blood Pressure 108/67 02/15/25 16:53 Pulse Oximetry 99 02/15/25 16:53 Oxygen Delivery Me thod Room Air 02/15/25 16:30 MDM - Abdominal Pain Medical Decision Making White count elevated suspect that is from vomiting. Liver enzymes are in normal ranges. Imaging does not show any evidence of acute cholecystitis. Reviewed dietary cautions to the patient for gallbladder issues. Suspect she has biliary dyskinesia we will set her up for a HIDA scan follow-up with general surgery. Pain and nausea medications given return if she has further problems Medical Records I reviewed the patient's medical records. Lab Data I reviewed the patient's lab results. 02/15/25 12:05 02/15/25 12:05 Labs/Radiology: Radiology Impressions Abdomen/Pelvis CT 02/15/25 13:15 IMPRESSION: 1. No acute findings in the abdomen or pelvis. 2. Normal appendix. No evidence of acute appendicitis. Gallbladder Ultrasound 02/15/25 13:28 IMPRESSION: Normal right upper quadrant ultrasound. Laboratory Results WBC 23.21 10^3/uL (3.29-11.43) H 02/15/25 12:05 RBC 5.61 10^6/uL (3.85-5.65) 02/15/25 12:05 Hgb 15.20 g/dL (11.27-16.99) 02/15/25 12:05 Hct 48.6 % (36-47) H 02/15/25 12:05 MCV 86.6 fl (85-98) 02/15/25 12:05 MCH 27.1 pg (27-33) 02/15/25 12:05 MCHC 31.3 g/dL (30-55) 02/15/25 12:05 RDW 13.6 % (12.1-15.1) 02/15/25 12:05 Plt Count 326 10^3/cmm (157-399) 02/15/25 12:05 MPV 10.8 fL (7.4-10.4) H 02/15/25 12:05 Neut % (Auto) 81.7 % 02/15/25 12:05 Lymph % (Auto) 9.9 % 02/15/25 12:05 [place] % (Auto) 6.2 % 02/15/25 12:05 Eos % (Auto) 1.6 % 02/15/25 12:05 Baso % (Auto) 0.2 % 02/15/25 12:05 Neut # (Auto) 18.98 10^3/uL (1.8-7.7) H 02/15/25 12:05 Lymph # (Auto) 2.3 10^3/uL (0.8-4.8) 02/15/25 12:05 [place] # (Auto) 1.4 10^3/uL (0.2-0.9) H 02/15/25 12:05 Eos # (Auto) 0.4 10^3/uL (0.0-0.8) 02/15/25 12:05 Baso # (Auto) 0.0 10^3/uL (0.0-0.1) 02/15/25 12:05 Nucleated RBC % (auto) 0 % 02/15/25 12:05 Nucleated RBCs # 0.0 /100WBC 02/15/25 12:05 Sodium 136 mmol/L (136-145) 02/15/25 12:05 Potassium 4.3 mmol/L (3.5-5.1) 02/15/25 12:05 Chloride 107 mmol/L (98-107) 02/15/25 12:05 Carbon Dioxide 13 mmol/L (22-29) L 02/15/25 12:05 Anion Gap 20.3 (5-19) H 02/15/25 12:05 BUN 11 mg/dL (6-20) 02/15/25 12:05 Creatinine 0.7 mg/dL (0.5-0.9) 02/15/25 12:05 GFR Calculation 102.0 mL/min (90-130) 02/15/25 12:05 Glucose 103 mg/dL (65-115) 02/15/25 12:05 Calculated Osmolality 282 mOsm/kg (285-295) L 02/15/25 12:05 Calcium 9.1 mg/dL (8.5-10.5) 02/15/25 12:05 Total Bilirubin 0.4 mg/dL (0.15-1.2) 02/15/25 12:05 AST 21 U/L (0-32) 02/15/25 12:05 ALT 14 U/L (0-33) 02/15/25 12:05 Alkaline Phosphatase 76 U/L (35-105) 02/15/25 12:05 Total Protein 7.6 g/dL (6.6-8.7) 02/15/25 12:05 Albumin 4.4 g/dL (3.5-5.2) 02/15/25 12:05 Globulin 3.2 g/dL (1.3-4.6) 02/15/25 12:05 Lipase 20 U/L (13-60) 02/15/25 12:05 HCG, Qual Negative (Negative) 02/15/25 12:05 Urine Color Dark yellow (Yellow) A 02/15/25 11:30 Urine Appearance Clear (CLEAR) 02/15/25 11:30 Urine pH 5.5 (5-7) 02/15/25 11:30 Ur Specific [place] 1.026 (1.005-1.030) 02/15/25 11:30 Urine Protein 1+ (Negative) A 02/15/25 11:30 Urine Glucose (UA) Negative (Normal) 02/15/25 11:30 Urine Ketones Trace (Negative) 02/15/25 11:30 Urine Blood 1+ (Negative) A 02/15/25 11:30 Urine Nitrate Negative (Negative) 02/15/25 11:30 Urine Bilirubin Negative (Negative) 02/15/25 11:30 Urine Urobilinogen 1.0 mg/dL (Negative) 02/15/25 11:30 Ur Leukocyte Esterase Trace (Negative) A 02/15/25 11:30 Urine RBC 3-5 /hpf (0-2) 02/15/25 11:30 Urine WBC 0-5 /hpf (0-5) 02/15/25 11:30 Ur Squamous Epith Cells 0-5 /hpf (0-5) 02/15/25 11:30 Amorphous Sediment Not Reportable 02/15/25 11:30 Urine Bacteria None seen /hpf (NONE) 02/15/25 11:30 Hyaline Casts 9.91 /lpf 02/15/25 11:30 All radiology interpretation(s) finalized by discharge Discharge Plan Discharge Patient Disposition: Home Clinical Impression: Biliary dyskinesia Condition: Stable Prescriptions: New hydrocodone-acetaminophen 5-325 mg tablet 1 tab PO Q6H PRN (Reason: pain) Qty: 20 0RF promethazine 25 mg tablet 25 mg PO Q6H PRN (Reason: nausea and vomiting) Qty: 20 0RF pantoprazole 40 mg tablet,delayed release (DR/EC) 40 mg PO DAILY 28 Days Qty: 30 0RF No Action ibuprofen 800 mg tablet 800 mg PO Q8H PRN (Reason: bleeding) Qty: 30 2RF medroxyprogesterone 150 mg/mL syringe See Rx Instructions .ROUTE .COMPLEX Qty: 1 0RF Dose Instruction: INJECT 1ML INTRAMUSCULARLY EVERY 3 MONTHS Rx Instructions: INJECT 1ML INTRAMUSCULARLY EVERY 3 MONTHS Discharge Orders: Discharge ED (Routine); Ordered 02/15/25 Ordered By: Pavan Talley Discharge Diet: Usual diet Discharge Activity: Resume usual activity Patient Instructions: Opioid Safety, Pain Management Activity Restrictions/Additional Instructions: Thank you for choosing [facility] for your healthcare needs today. It is very important that you follow up as instructed or that you return to the Emergency Department should you have concerns or if your condition changes or worsens in any way. You were seen in the emergency room complaints abdominal pain while your white count was elevated CT and ultrasound did not show any significant abnormality. You were moderately dehydrated. You are given IV fluids nausea and pain medications. Based on your symptoms and history suspect you have biliary dyskinesia this is a condition where the gallbladder malfunctions and causes significant pain but does not look abnormal on imaging or cause abnormal labs. Will schedule you for an outpatient HIDA scan to evaluate for this. In the interim you should avoid fatty foods alcohol spicy foods red meats citrus fruits tomato-based products or anything else you noticed that seems to cause discomfort. In addition to pain and nausea medications you are given. Pantoprazole to to protect your stomach. If your symptoms become uncontrolled or worsen return to the emergency room. Print Language: Omani Coding Level of Care Code ED Manager Relationship for Javad Winchester
[2025-02-15] MEDS: sodium chloride 0.9% 1,000 ML 999 ML IV (14:05)
[2025-02-15] MEDS: morphine 4 mg/mL SDV 1 mL IVP (14:07)
[2025-02-15] MEDS: pantoprazole 40 mg SDV 80 MG IVP (14:08)
[2025-02-15] MEDS: ondansetron 2 mg/ML SDV 2 mL 4 MG IVP (14:08)
[2025-02-15 15:18] LABS: Bilirubin Urine Negative (Negative); Blood Urine 1+ (Negative); Glucose Urine UA Negative (Normal); Ketones Urine Trace (Negative); Leukocyte Esterase Urine Trace (Negative); Nitrate Urine Negative (Negative); Protein Urine 1+ (Negative); Specific Gravity, Urine 1.026 (1.005-1.030); Urine Appearance Clear (CLEAR); Urine Color Dark Yellow (Yellow); pH Urine 5.5 (5-7)
[2025-02-15 15:20] LABS: Add Urine Microscopic? YES; Bacteria Urine None Seen /hpf; Hyaline Casts Urine 9.91 /lpf; Squamous Epithelial Cell Urine 0-5 /hpf (0-5); WBC Urine 0-5 /hpf (0-5)
[2025-02-15 15:39] LABS: UA Slide Review UA Slide Review Perf
[2025-02-15 15:40] LABS: Add Urine Culture? No
--- NOTE | 2025-02-19 18:33 | DCPLANNER ---
faxed outpatient hida order to scheduling and messaged gen surg for er f/u
== END 2025-02-15 16:55 | disposition home or self-care (01) ==
PROVIDERS: Emergency Medicine; Emergency Provider Family Medicine
DX: K82.8 Other specified diseases of gallbladder (principal)
CPT/HCPCS: 74176; 76705; 80053; 81001; 83690; 84703; 85025; 96361; 96374; 96375; 99285; J2270; J2405; J2470; J7030

== ENCOUNTER 2025-03-08 08:17 | Outpatient (CLI) | payer OTHER, SELFPAY ==
--- NOTE | 2025-03-08 08:30 | NM_ITS ---
WS: [id number] NUCLEAR MEDICINE HIDA SCAN WITH GALLBLADDER EJECTION FRACTION HISTORY: RUQ PAIN COMPARISON: Gallbladder ultrasound 02/15/2025 TECHNIQUE: The patient was intravenously injected with 7.4 mCi of TC99m Mebrofenin. Immediate imaging over the right upper quadrant was followed by 5 minute image and additional images for a total of 60 minutes. Normal uptake of radiotracer throughout the liver. Activity identified in the gallbladder at 10 minutes and well distended by 60 minutes. Activity in the proximal small bowel was seen by 30 minutes. Good washout of the radiotracer from the liver by 60 minutes. The patient then drank 8 ounces of Ensure Plus. Ejection fraction at 60 minutes was 79%. Normal GB ejection fraction is 35-75%. Post fatty meal symptoms: None. NM/NM hepatobiliary w phar* [id number] IMPRESSION: 1. Normal HIDA scan. 2. Normal gallbladder ejection fraction.
== END 2025-03-08 08:18 | disposition home or self-care (01) ==
PROVIDERS: Visit Provider Family Medicine
DX: R10.9 Unspecified abdominal pain (principal); D72.829 Elevated white blood cell count, unspecified
CPT/HCPCS: 78227; A9537

== ENCOUNTER 2025-07-11 01:37 | Emergency (ER) | payer OTHER, SELFPAY ==
--- OUTSIDE RECORDS SUMMARY | 2025-07-11 01:44 | XMS_ITS | Encounter Summary ---
Author Organization [facility] Address [address] [place] [address] Care Team Providers Care Paint Preparer Name Role Phone Non-Staff, Physician Primary Care Provider Unava ilable Encounter Details Date Type Department Care Team (Latest Contact Info) Description 09/10/2003 Outpatient Historical [facility] Family Medicine- [place] [address] [place] [address] Pilar Benavides MD NO ADDRESS ON FILE ACUTE URI NOS (Primary Dx) Social History Tobacco Use Types Packs/Day Years Used Date Smoking Tobacco: Never Assessed Comments Unknown Sex and Gender Information Value Date Recorded Sex Assigned at Not on file Legal Sex Female 2:36 AM MECHANICAL STRIPER Gender Identity Not on file Sexual Orientation Not on file documented as of this encounter Plan of Treatment Not on file documented as of this encounter Visit Diagnoses Diagnosis Acute upper respiratory infections of unspecified site- Primary documented in this encounter Care Teams Paint Preparer Relationship Specialty Start Date End Date Non-Staff, Physician NO ADDRESS ON FILE PCP - General 03/12/14 documented as of this encounter
--- OUTSIDE RECORDS SUMMARY | 2025-07-11 01:44 | XMS_ITS | Encounter Summary ---
Author Organization [facility] Address [address] [place] [address] Care Team Providers Care Shot Packer Name Role Phone Non-Staff, Physician Primary Care Provider Unava ilable Encounter Details Date Type Department Care Team (Latest Contact Info) Description 12/10/2003 Outpatient Historical [facility] Medicine [place] [address] [facility] [address] [place] [phone] Pilar Benavides MD NO ADDRESS ON FILE ACUTE URI NOS (Primary Dx); ASTHMA UNSPECIFIED Social History Tobacco Use Types Packs/Day Years Used Date Smoking Tobacco: Never Assessed Comments Unknown Sex and Gender Information Value Date Recorded Sex Assigned at Not on file 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
--- OUTSIDE RECORDS SUMMARY | 2025-07-11 01:44 | XMS_ITS | Encounter Summary ---
Author Organization [facility] Address [address] [place] [address] Care Team Providers Care Heavy Duty Mechanic Farm Equipment Name Role Phone Non-Staff, Physician Primary Care Provider Unava ilable Encounter Details Date Type Department Care Team (Latest Contact Info) Description 09/14/2003 Outpatient Historical [facility] Family Medicine- [place] [address] [place] [address] Pilar Benavides MD NO ADDRESS ON FILE PREOP EXAM OTHER SPECIFIED (Primary Dx) Social History Tobacco Use Types Packs/Day Years Used Date Smoking Tobacco: Never Assessed Comments Unknown Sex and Gender Information Value Date Recorded Sex Assigned at Not on file Legal Sex Female 2:36 AM SOFTWARE REVERSE ENGINEER Gender Identity Not on file Sexual Orientation Not on file documented as of this encounter Plan of Treatment Not on file documented as of this encounter Visit Diagnoses Diagnosis Other specified pre-operative examination- Primary documented in this encounter Care Teams Heavy Duty Mechanic Farm Equipment Relationship Specialty Start Date End Date Non-Staff, Physician NO ADDRESS ON FILE PCP - General 03/12/14 documented as of this encounter
--- OUTSIDE RECORDS SUMMARY | 2025-07-11 01:44 | XMS_ITS | Encounter Summary ---
Author Organization [facility] Address [address] [place] [address] Care Team Providers Care Radial Router Operator Name Role Phone Non-Staff, Physician Primary Care Provider Unava ilable Encounter Details Date Type Department Care Team (Latest Contact Info) Description 07/25/2003 Outpatient Historical [facility] Family Medicine [place] [address] [facility] [address] [place] [phone] Pilar Benavides MD NO ADDRESS ON FILE MED EXAM NEC-ADMIN PURP (Primary Dx) Social History Tobacco Use Types Packs/Day Years Used Date Smoking Tobacco: Never Assessed Comments Unknown Sex and Gender Information Value Date Recorded Sex Assigned at Not on file Legal Sex Female 2:36 AM DATABASES SOFTWARE CONSULTANT Gender Identity Not on file Sexual Orientation Not on file documented as of this encounter Plan of Treatment Not on file documented as of this encounter Visit Diagnoses Diagnosis Other general medical examination for administrative purposes- Primary documented in this encounter Care Teams Radial Router Operator Relationship Specialty Start Date End Date Non-Staff, Physician NO ADDRESS ON FILE PCP - General 03/12/14 documented as of this encounter
--- OUTSIDE RECORDS SUMMARY | 2025-07-11 01:44 | XMS_ITS | Encounter Summary ---
Author Organization [facility] Address [address] [place] [address] Care Team Providers Care Thermal Engineer Name Role Phone Non-Staff, Physician Primary Care Provider Unava ilable Encounter Details Date Type Department Care Team (Latest Contact Info) Description 03/10/2004 Outpatient Historical [facility] Family Medicine- [place] [address] [place] [address] Pilar Benavides MD NO ADDRESS ON FILE ACUTE TONSILLITIS (Primary Dx) Social History Tobacco Use Types Packs/Day Years Used Date Smoking Tobacco: Never Assessed Comments Unknown Sex and Gender Information Value Date Recorded Sex Assigned at Not on file Legal Sex Female 2:36 AM MEDIA LAW FACULTY MEMBER Gender Identity Not on file Sexual Orientation Not on file documented as of this encounter Plan of Treatment Not on file documented as of this encounter Visit Diagnoses Diagnosis Acute tonsillitis- Primary documented in this encounter Care Teams Thermal Engineer Relationship Specialty Start Date End Date Non-Staff, Physician NO ADDRESS ON FILE PCP - General 03/12/14 documented as of this encounter
--- OUTSIDE RECORDS SUMMARY | 2025-07-11 01:44 | XMS_ITS | Encounter Summary ---
Author Organization [facility] Address [address] [place] [address] Care Team Providers Care Church History Professor Name Role Phone Non-Staff, Physician Primary Care Provider Unava ilable Encounter Details Date Type Department Care Team (Latest Contact Info) Description 04/08/2005 Outpatient Historical [facility] Family Medicine- [place] [address] [place] [address] Serena Valencia NP NO ADDRESS ON FILE DERMATITIS NOS (Primary Dx) Social History Tobacco Use Types Packs/Day Years Used Date Smoking Tobacco: Never Assessed Comments Unknown Sex and Gender Information Value Date Recorded Sex Assigned at Not on file Legal Sex Female 2:36 AM TELESALES MANAGER Gender Identity Not on file Sexual Orientation Not on file documented as of this encounter Plan of Treatment Not on file documented as of this encounter Visit Diagnoses Diagnosis Contact dermatitis and other eczema, due to unspecified cause- Primary documented in this encounter Care Teams Church History Professor Relationship Specialty Start Date End Date Non-Staff, Physician NO ADDRESS ON FILE PCP - General 03/12/14 documented as of this encounter
--- OUTSIDE RECORDS SUMMARY | 2025-07-11 01:44 | XMS_ITS | Encounter Summary ---
Author Organization [facility] Address [address] [place] [address] Care Team Providers Care Merchandiser Retail Representative Name Role Phone Non-Staff, Physician Primary Care Provider Unava ilable Encounter Details Date Type Department Care Team (Latest Contact Info) Description 10/31/2003 Outpatient Historical [facility] Medicine [place] 104 [facility] [address] [place] [address] Pilar Benavides MD NO ADDRESS ON FILE ACUTE URI NOS (Primary Dx); ACUTE PHARYNGITIS; ASTHMA UNSPECIFIED; Vaccine for influenza Social History Tobacco Use Types Packs/Day Years Used Date Smoking Tobacco: Never Assessed Comments Unknown Sex and Gender Information Value Date Recorded Sex Assigned at Not on file 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 Sex Female 2:36 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 Gender Identity Not on file Sexual Orientation Not on file documented as of this encounter Plan of Treatment Not on file documented as of this encounter Visit Diagnoses Diagnosis Acute upper respiratory infections of unspecified site- Primary Acute pharyngitis Unspecified asthma(493.90) Unspecified asthma Vaccine for influenza Need for prophylactic vaccination and inoculation against influenza documented in this encounter Care Teams Merchandiser Retail Representative Relationship Specialty Start Date End Date Non-Staff, Physician NO ADDRESS ON FILE PCP - General 03/12/14 documented as of this encounter
--- OUTSIDE RECORDS SUMMARY | 2025-07-11 01:44 | XMS_ITS | Encounter Summary ---
Author Organization [facility] Address [address] [place] [address] Care Team Providers Care Area Director Of Home Health Sales Name Role Phone Non-Staff, Physician Primary Care Provider Unava ilable Encounter Details Date Type Department Care Team (Latest Contact Info) Description 08/08/2004 Outpatient Historical [facility] Family Medicine- [place] [address] [place] [address] Pilar Benavides MD NO ADDRESS ON FILE HEALTH EXAM-GROUP SURVEY (Primary Dx) Social History Tobacco Use Types Packs/Day Years Used Date Smoking Tobacco: Never Assessed Comments Unknown Sex and Gender Information Value Date Recorded Sex Assigned at Not on file Legal Sex Female 2:36 AM WHIPPER Gender Identity Not on file Sexual Orientation Not on file documented as of this encounter Plan of Treatment Not on file documented as of this encounter Visit Diagnoses Diagnosis Health examination of defined subpopulation- Primary documented in this encounter Care Teams Area Director Of Home Health Sales Relationship Specialty Start Date End Date Non-Staff, Physician NO ADDRESS ON FILE PCP - General 03/12/14 documented as of this encounter
--- OUTSIDE RECORDS SUMMARY | 2025-07-11 01:44 | XMS_ITS | Encounter Summary ---
Author Organization [facility] Address [address] [place] [address] Care Team Providers Care Manufacturing Engineering Professor Name Role Phone Non-Staff, Physician Primary Care Provider Unava ilable Encounter Details Date Type Department Care Team (Latest Contact Info) Description 01/30/2005 Outpatient Historical [facility] Family Medicine- [place] [address] [place] [address] Pilar Benavides MD NO ADDRESS ON FILE PNEUMONIA, ORGANISM NOS (Primary Dx) Social History Tobacco Use Types Packs/Day Years Used Date Smoking Tobacco: Never Assessed Comments Unknown Sex and Gender Information Value Date Recorded Sex Assigned at Not on file Legal Sex Female 2:36 AM STEAM FITTER Gender Identity Not on file Sexual Orientation Not on file documented as of this encounter Plan of Treatment Not on file documented as of this encounter Visit Diagnoses Diagnosis Pneumonia, organism unspecified(486)- Primary Pneumonia, organism unspecified documented in this encounter Care Teams Manufacturing Engineering Professor Relationship Specialty Start Date End Date Non-Staff, Physician NO ADDRESS ON FILE PCP - General 03/12/14 documented as of this encounter
--- OUTSIDE RECORDS SUMMARY | 2025-07-11 01:44 | XMS_ITS | Encounter Summary ---
Author Organization [facility] Address [address] [place] [address] Care Team Providers Care Scudding Inspector Name Role Phone Non-Staff, Physician Primary Care Provider Unava ilable Encounter Details Date Type Department Care Team (Latest Contact Info) Description 09/26/2003 Outpatient Historical [facility] Medicine [place] [address] [facility] [address] [place] [address] Pilar Benavides MD NO ADDRESS ON FILE CONJUNCTIVITIS NOS (Primary Dx); DERMATOPHYTOSIS OF BODY; ENTEROBIASIS Social History Tobacco Use Types Packs/Day Years Used Date Smoking Tobacco: Never Assessed Comments Unknown Sex and Gender Information Value Date Recorded Sex Assigned at Not on file Legal Sex Female 2:36 AM PHP LAMP DEVELOPER Gender Identity Not on file Sexual Orientation Not on file documented as of this encounter Plan of Treatment Not on file documented as of this encounter Visit Diagnoses Diagnosis Conjunctivitis unspecified- Primary Conjunctivitis, unspecified Dermatophytosis of the body Enterobiasis documented in this encounter Care Teams Scudding Inspector Relationship Specialty Start Date End Date Non-Staff, Physician NO ADDRESS ON FILE PCP - General 03/12/14 documented as of this encounter
--- OUTSIDE RECORDS SUMMARY | 2025-07-11 01:44 | XMS_ITS | Encounter Summary ---
Author Organization [facility] Address [address] [place] [address] Care Team Providers Care Sas Bi Developer Name Role Phone Non-Staff, Physician Primary Care Provider Unava ilable Encounter Details Date Type Department Care Team (Latest Contact Info) Description 04/15/2004 Outpatient Historical [facility], Nose [facility] Th[facility] [address] [place] [phone] Igor Bullard MD NO ADDRESS ON FILE Hypertrophy tonsils/adenoids (Primary Dx); CHR TONSILLITIS & ADENOIDITIS Social History Tobacco Use Types Packs/Day Years Used Date Smoking Tobacco: Never Assessed Comments Unknown Sex and Gender Information Value Date Recorded Sex Assigned at Not on file Legal Sex Female 2:36 AM MANAGER ALLIANCE Gender Identity Not on file Sexual Orientation Not on file documented as of this encounter Plan of Treatment Not on file documented as of this encounter Visit Diagnoses Diagnosis Hypertrophy tonsils/adenoids- Primary Hypertrophy of tonsil with adenoids Chronic tonsillitis and adenoiditis(474.02) Chronic tonsillitis and adenoiditis documented in this encounter Care Teams Sas Bi Developer Relationship Specialty Start Date End Date Non-Staff, Physician NO ADDRESS ON FILE PCP - General 03/12/14 documented as of this encounter
--- OUTSIDE RECORDS SUMMARY | 2025-07-11 01:44 | XMS_ITS | Encounter Summary ---
Author Organization [facility] Address [address] [place] [address] Care Team Providers Care Desk Director Name Role Phone Non-Staff, Physician Primary Care Provider Unava ilable Encounter Details Date Type Department Care Team (Latest Contact Info) Description 01/17/2004 Outpatient Historical [facility] Family Medicine [place] [address] [phone] Pilar Benavides MD NO ADDRESS ON FILE HORDEOLUM EXTERNUM (Primary Dx) Social History Tobacco Use Types Packs/Day Years Used Date Smoking Tobacco: Never Assessed Comments Unknown Sex and Gender Information Value Date Recorded Sex Assigned at Not on file Legal Sex Female 2:36 AM CHIEF MEDICAL TECHNOLOGIST Gender Identity Not on file Sexual Orientation Not on file documented as of this encounter Plan of Treatment Not on file documented as of this encounter Visit Diagnoses Diagnosis Hordeolum externum- Primary documented in this encounter Care Teams Desk Director Relationship Specialty Start Date End Date Non-Staff, Physician NO ADDRESS ON FILE PCP - General 03/12/14 documented as of this encounter
--- OUTSIDE RECORDS SUMMARY | 2025-07-11 01:44 | XMS_ITS | Encounter Summary ---
Author Organization [facility] Address [address] [place] [address] Care Team Providers Care Fleet Assistant Name Role Phone Non-Staff, Physician Primary Care Provider Unava ilable Encounter Details Date Type Department Care Team (Latest Contact Info) Description 03/25/2005 Outpatient Historical [facility] Family Medicine- [place] [address] [place] [place] [address] Serena Valencia NP NO ADDRESS ON FILE ACUTE BRONCHITIS (Primary Dx); ACUTE PHARYNGITIS; ASTHMA UNSPECIFIED Social History Tobacco Use Types Packs/Day Years Used Date Smoking Tobacco: Never Assessed Comments Unknown Sex and Gender Information Value Date Recorded Sex Assigned at Not on file 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
--- OUTSIDE RECORDS SUMMARY | 2025-07-11 01:44 | XMS_ITS | Encounter Summary ---
Author Organization [facility] Address [address] [place] [address] Care Team Providers Care Member Certification Manager Name Role Phone Non-Staff, Physician Primary Care Provider Unava ilable Encounter Details Date Type Department Care Team (Latest Contact Info) Description 04/30/2004 Outpatient Historical [facility] Medicine [place] 104 [facility] [address] [place] [phone] Pilar Benavides MD NO ADDRESS ON FILE ALLERGIC RHINITIS NOS (Primary Dx); CONJUNCTIVITIS NOS Social History Tobacco Use Types Packs/Day Years Used Date Smoking Tobacco: Never Assessed Comments Unknown Sex and Gender Information Value Date Recorded Sex Assigned at Not on file Legal Sex Female 2:36 AM SOD FARMER Gender Identity Not on file Sexual Orientation Not on file documented as of this encounter Plan of Treatment Not on file documented as of this encounter Visit Diagnoses Diagnosis Allergic rhinitis, cause unspecified- Primary Conjunctivitis unspecified Conjunctivitis, unspecified documented in this encounter Care Teams Member Certification Manager Relationship Specialty Start Date End Date Non-Staff, Physician NO ADDRESS ON FILE PCP - General 03/12/14 documented as of this encounter
--- OUTSIDE RECORDS SUMMARY | 2025-07-11 01:44 | XMS_ITS | Encounter Summary ---
Author Organization [facility] Address [address] [place] [address] Care Team Providers Care Branch Lead Name Role Phone Non-Staff, Physician Primary Care Provider Unava ilable Encounter Details Date Type Department Care Team (Latest Contact Info) Description 03/14/2004 Outpatient Historical [facility] Family Medicine- [place] [address] [place] [address] Pilar Benavides MD NO ADDRESS ON FILE ACUTE PHARYNGITIS (Primary Dx); STREP SORE THROAT Social History Tobacco Use Types Packs/Day Years Used Date Smoking Tobacco: Never Assessed Comments Unknown Sex and Gender Information Value Date Recorded Sex Assigned at Not on file Legal Sex Female 2:36 AM SUPERVISOR MAJOR APPLIANCE ASSEMBLY Gender Identity Not on file Sexual Orientation Not on file documented as of this encounter Plan of Treatment Not on file documented as of this encounter Visit Diagnoses Diagnosis Acute pharyngitis- Primary Streptococcal sore throat documented in this encounter Care Teams Branch Lead Relationship Specialty Start Date End Date Non-Staff, Physician NO ADDRESS ON FILE PCP - General 03/12/14 documented as of this encounter
--- OUTSIDE RECORDS SUMMARY | 2025-07-11 01:44 | XMS_ITS | Encounter Summary ---
Author Organization [facility] Address [address] [place] [address] Care Team Providers Care Investigation Specialist Name Role Phone Non-Staff, Physician Primary Care Provider Unava ilable Encounter Details Date Type Department Care Team (Latest Contact Info) Description 02/21/2004 Outpatient Historical [facility] Family Medicine [place] 104 [facility] [address] [place] [phone] Pilar Benavides MD NO ADDRESS ON FILE STREP SORE THROAT (Primary Dx); SCARLET FEVER Social History Tobacco Use Types Packs/Day Years Used Date Smoking Tobacco: Never Assessed Comments Unknown Sex and Gender Information Value Date Recorded Sex Assigned at Not on file Legal Sex Female 2:36 AM GLOBAL HEAD ADVERTISER SOLUTIONS Gender Identity Not on file Sexual Orientation Not on file documented as of this encounter Plan of Treatment Not on file documented as of this encounter Visit Diagnoses Diagnosis Streptococcal sore throat- Primary Scarlet fever documented in this encounter Care Teams Investigation Specialist Relationship Specialty Start Date End Date Non-Staff, Physician NO ADDRESS ON FILE PCP - General 03/12/14 documented as of this encounter
--- OUTSIDE RECORDS SUMMARY | 2025-07-11 01:44 | XMS_ITS | Encounter Summary ---
Author Organization [facility] Address [address] [place] [address] Care Team Providers Care Steam Turbine Assembler Name Role Phone Non-Staff, Physician Primary Care Provider Unava ilable Encounter Details Date Type Department Care Team (Latest Contact Info) Description 04/15/2004 Outpatient Historical [facility] [address] [place] [phone] Igor Bullard MD NO ADDRESS ON FILE CHR TONSILLITIS & ADENOIDITIS (Primary Dx) Social History Tobacco Use Types Packs/Day Years Used Date Smoking Tobacco: Never Assessed Comments Unknown Sex and Gender Information Value Date Recorded Sex Assigned at Not on file Legal Sex Female 2:36 AM MEDICAL STAFF ASSISTANT Gender Identity Not on file Sexual Orientation Not on file documented as of this encounter Plan of Treatment Not on file documented as of this encounter Visit Diagnoses Diagnosis Chronic tonsillitis and adenoiditis(474.02)- Primary Chronic tonsillitis and adenoiditis documented in this encounter Care Teams Steam Turbine Assembler Relationship Specialty Start Date End Date Non-Staff, Physician NO ADDRESS ON FILE PCP - General 03/12/14 documented as of this encounter
--- OUTSIDE RECORDS SUMMARY | 2025-07-11 01:44 | XMS_ITS | Encounter Summary ---
Author Organization [facility] Address [address] [place] [address] Care Team Providers Care Therapeutic Activities Services Worker Name Role Phone Non-Staff, Physician Primary Care Provider Unava ilable Encounter Details Date Type Department Care Team (Latest Contact Info) Description 04/10/2004 Outpatient Historical [facility] [address] [place] [phone] Igor Bullard MD NO ADDRESS ON FILE PREOP EXAM OTHER SPECIFIED (Primary Dx) Social History Tobacco Use Types Packs/Day Years Used Date Smoking Tobacco: Never Assessed Comments Unknown Sex and Gender Information Value Date Recorded Sex Assigned at Not on file Legal Sex Female 2:36 AM FLIGHT TEACHER Gender Identity Not on file Sexual Orientation Not on file documented as of this encounter Plan of Treatment Not on file documented as of this encounter Visit Diagnoses Diagnosis Other specified pre-operative examination- Primary documented in this encounter Care Teams Therapeutic Activities Services Worker Relationship Specialty Start Date End Date Non-Staff, Physician NO ADDRESS ON FILE PCP - General 03/12/14 documented as of this encounter
--- OUTSIDE RECORDS SUMMARY | 2025-07-11 01:44 | XMS_ITS | Encounter Summary ---
Author Organization [facility] Address [address] [place] [address] Care Team Providers Care Assistant Cross Country Coach Name Role Phone Non-Staff, Physician Primary Care Provider Unava ilable Encounter Details Date Type Department Care Team (Latest Contact Info) Description 06/18/2003 Outpatient Historical [facility] Family Medicine- [place] [address] [place] [address] Pilar Benavides MD NO ADDRESS ON FILE INSECT BITE NEC (Primary Dx) Social History Tobacco Use Types Packs/Day Years Used Date Smoking Tobacco: Never Assessed Comments Unknown Sex and Gender Information Value Date Recorded Sex Assigned at Not on file 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
--- OUTSIDE RECORDS SUMMARY | 2025-07-11 01:44 | XMS_ITS | Encounter Summary ---
Author Organization [facility] Address [address] [place] [address] Care Team Providers Care Automotive Technology Instructor Name Role Phone Non-Staff, Physician Primary Care Provider Unava ilable Encounter Details Date Type Department Care Team (Latest Contact Info) Description 04/10/2004 Outpatient Historical [facility] Throat 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
--- OUTSIDE RECORDS SUMMARY | 2025-07-11 01:44 | XMS_ITS | Encounter Summary ---
Author Organization [facility] Address [address] [place] [address] Care Team Providers Care Manager Hematology Name Role Phone Non-Staff, Physician Primary Care Provider Unava ilable Encounter Details Date Type Department Care Team (Latest Contact Info) Description 05/07/2003 Outpatient Historical [facility] Ear, Nose and Throat 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
--- OUTSIDE RECORDS SUMMARY | 2025-07-11 01:44 | XMS_ITS | Encounter Summary ---
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
--- OUTSIDE RECORDS SUMMARY | 2025-07-11 01:44 | XMS_ITS | Encounter Summary ---
Author Organization [facility] Address [address] [place] [address] Care Team Providers Care Attendant Self Service Store Name Role Phone Non-Staff, Physician Primary Care Provider Unava ilable Encounter Details Date Type Department Care Team (Latest Contact Info) Description 10/04/2003 Outpatient Historical [facility] Family Medicine [place] [address] [phone] Pilar Benavides MD NO ADDRESS ON FILE ACUTE URI NOS (Primary Dx); ACUTE BRONCHITIS Social History Tobacco Use Types Packs/Day Years Used Date Smoking Tobacco: Never Assessed Comments Unknown Sex and Gender Information Value Date Recorded Sex Assigned at Not on file 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
--- OUTSIDE RECORDS SUMMARY | 2025-07-11 01:44 | XMS_ITS | Encounter Summary ---
Author Organization [facility] Address [address] [place] [address] Care Team Providers Care Cdl Dedicated Truck Driver Name Role Phone Non-Staff, Physician Primary Care Provider Unava ilable Encounter Details Date Type Department Care Team (Latest Contact Info) Description 09/29/[address] 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
--- OUTSIDE RECORDS SUMMARY | 2025-07-11 01:44 | XMS_ITS | Encounter Summary ---
Author Organization [facility] Address [address] [place] [address] Care Team Providers Care Die Welder Name Role Phone Non-Staff, Physician Primary Care Provider Unava ilable Encounter Details Date Type Department Care Team (Latest Contact Info) Description 06/09/2004 Outpatient Historical [facility] Family Medicine- [place] [address] [place] [address] Pilar Benavides MD NO ADDRESS ON FILE Toxic effect venom (Primary Dx); CELLULITIS NOS Social History Tobacco Use Types Packs/Day Years Used Date Smoking Tobacco: Never Assessed Comments Unknown Sex and Gender Information Value Date Recorded Sex Assigned at Not on file Legal Sex Female 2:36 AM ONLINE TUTOR Gender Identity Not on file Sexual Orientation Not on file documented as of this encounter Plan of Treatment Not on file documented as of this encounter Visit Diagnoses Diagnosis Toxic effect venom- Primary Toxic effect of venom Cellulitis and abscess of unspecified site documented in this encounter Care Teams Die Welder Relationship Specialty Start Date End Date Non-Staff, Physician NO ADDRESS ON FILE PCP - General 03/12/14 documented as of this encounter
--- OUTSIDE RECORDS SUMMARY | 2025-07-11 01:45 | XMS_ITS | Encounter Summary ---
Author Organization [facility] Address [address] [place] [address] Care Team Providers Care Tomography Technologist Name Role Phone Non-Staff, Physician Primary Care Provider Unava ilable Encounter Details Date Type Department Care Team (Latest Contact Info) Description 06/19/2005 Outpatient Historical [facility] Family Medicine- [place] [address] [facility] [place] [address] Pilar Benavides MD NO ADDRESS ON FILE Routine child health exam (Primary Dx); DERMATOPHYTOSIS OF BODY Social History Tobacco Use Types Packs/Day Years Used Date Smoking Tobacco: Never Assessed Comments Unknown Sex and Gender Information Value Date Recorded Sex Assigned at Not on file 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
--- OUTSIDE RECORDS SUMMARY | 2025-07-11 01:45 | XMS_ITS | Clinical Summary ---
Author Organization [facility] Address [address] [place] [address] Care Team Providers Care Aluminum Can Collector Name Role Phone Non-Staff, Physician Primary Care Provider Unava ilable Immunizations Immunization Administration Dates Next Due (M-M-R II/PRIORIX)(12 [place] UP) MEASLES, MUMPS AND RUBELLA VIRUS VACCINE, 0.5 ML IM/SUBCUT 06/19/2005,07/07/2000 (VARIVAX)(12 MOS UP)VARICELL A VIRUS VACCINE (PF) 0.5 ML, SUB CUT 07/06/2002 Dt Dtp Dtap Vaccine 06/19/2005, 1,05/05/2000,1999,1999 HIB, Unspecified Formulation 01/05/2001, 05/05/2000,01/07/2000,1998 Hepatitis B Vaccine 05/05/2000,1999,1998 IPV/OPV 06/19/2005, 1,01/07/2000,1998 Influenza Seasonal Unspecifi ed Formulation IM 10/31/2003 Social History Tobacco Use Types Packs/Day Years Used Date Smoking Tobacco: Never Assessed Comments Unknown Sex and Gender Information Value Date Recorded Sex Assigned at Not on file 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 Sex Female 2:36 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 Gender Identity Not on file Sexual Orientation Not on file Plan of Treatment Health Maintenance Due Date Last Done Comments DTAP/TDAP/TD VACCINES (6 - Tdap) 2010 06/19/2005, 01/05/2001, 05/05/2000, Additional history exists HPV VACCINES (1 - 3-dose series) 2014 CERVICAL CANCER SCREENING 2020 HPV/Cotest (21-29) 2020 PAP SMEAR 2020 INFLUENZA VACCINE (#1) 2025 10/31/2003 HEPATITIS B VACCINES Completed 05/05/2000, 1999, 1999 Insurance [facility] PLAN [facility] [place] [address] [place] [address] PLAN OF [facility] Care Teams Aluminum Can Collector Relationship Specialty Start Date End Date Non-Staff, Physician NO ADDRESS ON FILE PCP - General 03/12/14
--- OUTSIDE RECORDS SUMMARY | 2025-07-11 01:45 | XMS_ITS | Encounter Summary ---
Author Organization [facility] Address [address] [place] [address] Care Team Providers Care Curtain Framer Name Role Phone Non-Staff, Physician Primary Care Provider Unava ilable Encounter Details Date Type Department Care Team (Latest Contact Info) Description 12/23/2006 Outpatient Historical [facility] Family Medicine [place] [address] [facility] [address] [place] [phone] Muna Sherman, COKE HANDLING SUPERVISOR [address] [place] [address] Acute Upper Respiratory Infections of Unspecified Site (Primary Dx) Social History Tobacco Use Types Packs/Day Years Used Date Smoking Tobacco: Never Assessed Comments Unknown Sex and Gender Information Value Date Recorded Sex Assigned at Not on file Legal Sex Female 2:36 AM INSURANCE HEALTHCARE CONSULTANT Gender Identity Not on file Sexual Orientation Not on file documented as of this encounter Plan of Treatment Not on file documented as of this encounter Visit Diagnoses Diagnosis Acute upper respiratory infections of unspecified site- Primary documented in this encounter Care Teams Curtain Framer Relationship Specialty Start Date End Date Non-Staff, Physician NO ADDRESS ON FILE PCP - General 03/12/14 documented as of this encounter
--- OUTSIDE RECORDS SUMMARY | 2025-07-11 01:45 | XMS_ITS | Encounter Summary ---
Author Organization [facility] Address [address] [place] [address] Care Team Providers Care Diver Helper Name Role Phone Non-Staff, Physician Primary Care Provider Unava ilable Encounter Details Date Type Department Care Team (Latest Contact Info) Description 05/07/2003 Outpatient Historical [facility] Ear, Nose and Throat 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
--- OUTSIDE RECORDS SUMMARY | 2025-07-11 01:45 | XMS_ITS | Clinical Summary ---
Author Organization [facility] Address [address] [place]: [place] [address] Care Team Providers Care Advertising Sales Assistant Name Role Phone Jeff Martínez MD Primary Care Provider [phone] Allergies No known active allergies Medications medroxyPROGEST ERone (DEPO-PROVERA) 150 mg/mL Syringe INJECT INTRAMUSCULARLY DIRECTED BY PHYSICIAN 03/09/20 22 Active Active Problems No known active problems Immunizations Immunization Administration Dates Next Due (M-M-R [...] Packs/Day Years Used Date Smoking Tobacco: Never Smokeless Tobacco: Never Tobacco Cessation:Counseling Given: Not Answered Alcohol Use Standard Drinks/Week Comments Not Currently 0 (1 standard drink = 0.6 oz pur e alcohol) Comments No Sex and Gender Information Value Date Recorded Sex Assigned at Not on file Legal Sex Female 4:04 AM SPINNING MACHINE TENDER Gender Identity Not on file Sexual Orientation Not on file Last Filed Vital Signs Vital Sign Reading Time Taken Comments Blood Pressure 116/68 07/05/2023 8:06 AM CDT Pulse 79 07/05/2023 8:06 AM CDT Temperature 37 C (98.6 F) 07/05/2023 8:06 AM CDT Respiratory Rate 20 07/05/2023 8:06 AM CDT Oxygen Saturation 100% 07/05/2023 8:06 AM CDT Inhaled Oxygen Concentration - - Weight 73.8 kg (162 lb 12.8 oz) 07/05/2023 8:06 AM CDT Height 162.6 cm (5' 4 ) 07/05/2023 8:06 AM CDT Body Mass Index 27.94 07/05/2023 8:06 AM CDT Plan of Treatment Health Maintenance Due Date Last Done Comments DTAP/TDAP/TD VACCINES (6 - Tdap) 2010 06/19/2005, 01/05/2001, 05/05/2000, Additional history exists HPV VACCINES (1 - 3-dose series) 2014 Preventative Visit-Managed Medicaid 2018 CERVICAL CANCER SCREENING 2020 HPV/Cotest (21-29) 2020 PAP SMEAR 2020 INFLUENZA VACCINE (#1) 2025 10/31/2003 HEPATITIS B VACCINES Completed 05/05/2000, 1999, [address] [place] [place] [id number] [facility] [id number] Care Teams Advertising Sales Assistant Relationship Specialty Start Date End Date Jeff Martínez MD [address] [phone] PCP - General Family Practice 07/05/23
--- OUTSIDE RECORDS SUMMARY | 2025-07-11 01:45 | XMS_ITS | Clinical Summary ---
Author Organization [facility] Address [address] [place] [address] Care Team Providers Care Greenskeeper Name Role Phone Unavailable Primary Care Provider Unavailabl e Allergies No known active allergies Medications buPROPion (WELLBUTRIN) 300 MG XL tablet Take 1 tablet (300 mg) by mouth every morning Active Social History Tobacco Use Types Packs/Day Years Used Date Smoking Tobacco: Never Smokeless Tobacco: Never Tobacco Cessation:Counseling Given: Not Answered Alcohol Use Standard Drinks/Week Comments Not Currently 0 (1 standard drink = 0.6 oz pur e alcohol) Alcohol Use Answer Date Recorded Frequency of Alcohol Consumption Not on file 05/08/2024 Average Number of Drinks Not on file 024 Frequency of Binge Drinking Not on file 04/22 Alcohol Use Status Not Currently 05/08/2024 Average alcohol consumption Not on file 04/22 Comments Unknown Sex and Gender Information Value Date Recorded Sex Assigned at Female 03/29/2024 9:19 AM CDT Legal Sex Female 9:18 AM CDT Gender Identity Not on file Sexual Orientation Not on file Last Filed Vital Signs Vital Sign Reading Time Taken Comments Blood Pressure 118/78 06/15/2024 12:18 PM CDT Pulse 74 06/15/2024 12:18 PM CDT Temperature 36.3 C (97.4 F) 06/15/2024 12:18 PM CDT Respiratory Rate 18 06/15/2024 12:18 PM CDT Oxygen Saturation 98% 06/15/2024 12:18 PM CDT Inhaled Oxygen Concentration - - Weight 76.7 kg (169 lb) 06/15/2024 12:18 PM CDT Height 167.6 cm (5' 6 ) 03/29/2024 11:07 AM CDT Body Mass Index 27.28 03/29/2024 11:07 AM CDT Plan of Treatment Health Maintenance Due Date Last Done Comments HIV Screening 1999 Hepatitis C Screening ages 18 to 79 once 1999 MMR VACCINES (1 of 1 - Standard series) 2000 YEARLY WELLNESS EXAM 2002 Varicella Vaccine (2 of 2 - 2-dose childhood series) 2003 07/06/2002 DTaP/Tdap/Td Vaccines (6 - Tdap) 2010 06/19/2005, 01/05/2001, 05/05/2000, Additional history exists DEPRESSION SCREENING 2011 HPV VACCINES (1 - 3-dose series) 2014 ADULT TETANUS 2018 HEPATITIS B VACCINES (1 of 3 - 19+ 3-dose series) 2018 CERVICAL CANCER SCREENING 2020 COVID-19 Immunization (2023- season) 2024 Influenza Vaccine 06/22/2025 10/31/2003 Zoster Vaccine (Recombinant Vaccine) (1 of 2) 2049 HEPATITIS A VACCINES Aged Out No long er eligible based on patient's age to complete this topic HIB VACCINES Aged Out No longer eligi ble based on patient's age to complete this topic IPV VACCINES Aged Out No longer eligi ble based on patient's age to complete this topic MENINGOCOCCAL VACCINE Aged Out No karlee brian eligible based on patient's age to complete this topic Meningococcal B Vaccine Aged Out No l onger eligible based on patient's age to complete this topic Pneumococcal Vaccine: Peds to 50 & At-Risk Patients Aged Out No longer eligi ble based on patient's age to complete this topic ROTAVIRUS VACCINES Aged Out No longer eligible based on patient's age to complete this topic
--- OUTSIDE RECORDS SUMMARY | 2025-07-11 01:45 | XMS_ITS | Encounter Summary ---
Author Organization [facility] Address [address] [place] [address] Care Team Providers Care Fabric And Accessories Estimator Name Role Phone Non-Staff, Physician Primary Care Provider Unava ilable Encounter Details Date Type Department Care Team (Latest Contact Info) Description 04/12/2003 Outpatient Historical [facility] [place] [address] [facility] [address] [place] [phone] Pilar Benavides MD NO ADDRESS ON FILE GENITAL WARTS NOS (Primary Dx) Social History Tobacco Use Types Packs/Day Years Used Date Smoking Tobacco: Never Assessed Comments Unknown Sex and Gender Information Value Date Recorded Sex Assigned at Not on file Legal Sex Female 2:36 AM 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
[2025-07-11 01:52] VITALS: BP 130/80; PULSE 87; RESP 17; TEMP 36.9; O2SAT 95; BMI 30.9
--- NOTE | 2025-07-11 02:00 | CTR_ITS ---
PROCEDURE INFORMATION: Exam: CT Abdomen And Pelvis With Contrast Exam date and time: 07/11/2025 2:55 AM Age: 25 years old Clinical indication: Abdominal pain; Epigastric; Prior surgery; Surgery date: 6+ months; Surgery type: C section; Additional info: Epigastric abd pain TECHNIQUE: Imaging protocol: Computed tomography of the abdomen and pelvis with contrast. Radiation optimization: All CT scans at this facility use at least one of these dose optimization techniques: automated exposure control; mA and/or kV adjustment per patient size (includes targeted exams where dose is matched to clinical indication); or iterative reconstruction. Contrast material: OMNI 350; Contrast volume: 100 ml; Contrast route: INTRAVENOUS (IV); COMPARISON: CT abdomen pelvis wo con [id number] 02/15/2025 1:29 PM RADIATION DOSE METRICS: Total DLP (mGy-cm): 606.6 FINDINGS: Liver: Unremarkable. Gallbladder and biliary ducts: No calcified stones. No ductal dilation. Pancreas: Normal. No ductal dilation. Spleen: Unremarkable. Adrenal glands: Unremarkable. Kidneys and ureters: Normal. No hydronephrosis. Stomach and bowel: Unremarkable. No obstruction. No mucosal thickening. Appendix: No evidence of appendicitis. Intraperitoneal space: No free air. No fluid collection. Vasculature: Unremarkable. No abdominal aortic aneurysm. Lymph nodes: No enlarged lymph nodes. Urinary bladder: Unremarkable as visualized. Reproductive: Unremarkable as visualized. Bones/joints: No acute fracture. Soft tissues: Unremarkable. CT/CT abdomen pelvis w con* [id number] IMPRESSION: No acute abdominopelvic abnormality.
--- NOTE | 2025-07-11 02:01 | W.ED.ABDPA2 ---
HPI - Abdominal Pain General: Chief Complaint: Abdominal Pain Stated Complaint: ABD Pains\V Time Seen by Provider: 07/11/25 01:53 History of Present Illness: Patient comes in with abdominal pain. States that at about 8:00 last night she developed epigastric abdominal pain which she describes as cramping/sharp, constant, associated with nausea and vomiting. Denies diarrhea or fever. States has been having these abdominal pains for about a year. Denies any radiation. Denies any alleviating or worsening factors. States she has had a CT scan, and ultrasound, and a HIDA scan all that were unremarkable. States she was scheduled for an EGD but was unable to get the EGD. On physical exam she has normal bowel sounds. She has epigastric tenderness to palpation. Will check labs, give IV fluids, treat nausea with 10 mg of IV Compazine, treat pain with 30 mg of IV Toradol, and reassess. Differential diagnosis: Acute gastritis, acute peptic ulcer disease, acute pancreatitis, acute cholecystitis, acute choledocholithiasis, acute gastroparesis Associated Symptoms: Reports nausea and vomiting Related Data Previous Rx's ?Medication ?Instructions ?Recorded medroxyprogesterone 150 mg/mL See Rx Instructions .Route 09/15/24 intramuscular syringe .COMPLEX #1 mL hydrocodone 5 mg-acetaminophen 325 1 tab PO Q6H PRN pain #20 tabs 02/15/25 mg tablet promethazine 25 mg tablet 25 mg PO Q6H PRN nausea and 02/15/25 vomiting #20 tabs famotidine 20 mg tablet (Pepcid) 20 mg PO DAILY #30 tabs 07/11/25 Allergies Allergy/AdvReac Type Severity Reaction Status Date / Time No Known Allergies Allergy Verified 03/12/25 11:16 Review of Systems GI: Reports: abdominal pain, nausea and vomiting [facility] ED PFSH: Medical History (Updated 07/11/25 @ 03:42 by Maxim Anthony MD) Thyromegaly Major depressive disorder Irregular menses No pertinent past medical history Denies diabetes, asthma, seizures, DVT/PE, hypertension Surgical History History of section, low transverse (~02/11/20) Primary lower transverse with Dr. Cedillo at [facility] in [facility]. Done for nonreassuring heart tracing. 2 layer closure. Hx of tonsillectomy (~2004) Family History Grandfather Diabetes PATERNAL Hypertension Maternal Grandmother Hypertension PATERNAL AND MATERNAL Diabetes MATERNAL CAD (coronary artery disease) MATERNAL Hyperlipidemia Maternal Family/Other No problems noted. Denies family history of Colon cancer Ovarian cancer Breast cancer Uterine cancer Thyroid disease Stroke Social History (Updated 03/12/25 @ 11:27 by EVELIO Vaughan) Smoking and tobacco/nicotine status: current every day tobacco/nicotine user (vape w/nicotine) e-cigarettes E-Cigarette Details: e-cigarette and with nicotine Physical Exam Const: COMMON NORMALS: patient oriented x3, healthy appearing and alert HENMT: COMMON NORMALS: normocephalic and atraumatic HEAD & SCALP: normocephalic and atraumatic Neck/C-Spine: COMMON NORMALS: full ROM and supple Resp: COMMON NORMALS: normal respiratory effort, No retractions and No use of accessory muscles Cardio: COMMON NORMALS: regular rate and regular rhythm RATE: regular rate RHYTHM: regular rhythm GI: OTHER: Abdomen is soft, with epigastric tenderness to palpation, normal bowel sounds Extremity: COMMON NORMALS: normal to inspection and full ROM Neuro: COMMON NORMALS: patient oriented x3 SENSORIUM/ORIENTATION: Yes alert Course Vital Signs: Vital signs: Vital Signs Temperature 98.4 F 07/11/25 01:52 Pulse Rate 63 07/11/25 03:33 Respiratory Rate 17 07/11/25 01:52 Blood Pressure 105/63 07/11/25 03:33 Pulse Oximetry 100 07/11/25 03:33 Oxygen Delivery Me thod Room Air 07/11/25 03:33 MDM - Abdominal Pain Medical Decision Making On reassessment I talked to the patient about the test results. She is resting comfortably in the gurney with no signs of distress. She states that she is feeling much better after the Compazine and Toradol. Will start her on Pepcid, and refer her back to her primary care physician. Will discharge at this time with precautions to return for worsening or changing symptoms. Lab Data 07/11/25 02:00 07/11/25 02:00 Labs/Radiology: Radiology Impressions Abdomen/Pelvis CT 07/11/25 02:00 IMPRESSION: No acute abdominopelvic abnormality. Laboratory Results WBC 10.45 10^3/uL (3.29-11.43) 07/11/25 02:00 RBC 5.39 10^6/uL (3.85-5.65) 07/11/25 02:00 Hgb 14.40 g/dL (11.27-16.99) 07/11/25 02:00 Hct 44.5 % (36-47) 07/11/25 02:00 MCV 82.6 fl (85-98) L 07/11/25 02:00 MCH 26.7 pg (27-33) L 07/11/25 02:00 MCHC 32.4 g/dL (30-55) 07/11/25 02:00 RDW 13.6 % (12.1-15.1) 07/11/25 02:00 Plt Count 301 10^3/cmm (157-399) 07/11/25 02:00 MPV 10.7 fL (7.4-10.4) H 07/11/25 02:00 Neut % (Auto) 48.6 % 07/11/25 02:00 Lymph % (Auto) 40.6 % 07/11/25 02:00 Emanuel % (Auto) 7.4 % 07/11/25 02:00 Eos % (Auto) 2.7 % 07/11/25 02:00 Baso % (Auto) 0.4 % 07/11/25 02:00 Neut # (Auto) 5.09 10^3/uL (1.8-7.7) 07/11/25 02:00 Lymph # (Auto) 4.2 10^3/uL (0.8-4.8) 07/11/25 02:00 Emanuel # (Auto) 0.8 10^3/uL (0.2-0.9) 07/11/25 02:00 Eos # (Auto) 0.3 10^3/uL (0.0-0.8) 07/11/25 02:00 Baso # (Auto) 0.0 10^3/uL (0.0-0.1) 07/11/25 02:00 Nucleated RBC % (auto) 0 % 07/11/25 02:00 Nucleated RBCs # 0.0 /100WBC 07/11/25 02:00 Sodium 140 mmol/L (136-145) 07/11/25 02:00 Potassium 3.9 mmol/L (3.5-5.1) 07/11/25 02:00 Chloride 106 mmol/L (98-107) 07/11/25 02:00 Carbon Dioxide 22 mmol/L (22-29) 07/11/25 02:00 Anion Gap 15.9 (5-19) 07/11/25 02:00 BUN 10 mg/dL (6-20) 07/11/25 02:00 Creatinine 0.9 mg/dL (0.5-0.9) 07/11/25 02:00 GFR Calculation 75.7 mL/min (90-130) L 07/11/25 02:00 Glucose 101 mg/dL (65-115) 07/11/25 02:00 Calculated Osmolality 289 mOsm/kg (285-295) 07/11/25 02:00 Calcium 9.1 mg/dL (8.5-10.5) 07/11/25 02:00 Total Bilirubin 0.2 mg/dL (0.15-1.2) 07/11/25 02:00 AST 13 U/L (0-32) 07/11/25 02:00 ALT 11 U/L (0-33) 07/11/25 02:00 Alkaline Phosphatase 76 U/L (35-105) 07/11/25 02:00 Total Protein 7.5 g/dL (6.6-8.7) 07/11/25 02:00 Albumin 4.6 g/dL (3.5-5.2) 07/11/25 02:00 Globulin 2.9 g/dL (1.3-4.6) 07/11/25 02:00 Lipase 25 U/L (13-60) 07/11/25 02:00 HCG, Qual Negative (Negative) 07/11/25 02:00 All radiology interpretation(s) finalized by discharge Discharge Plan Discharge Patient Disposition: Home Clinical Impression: Abdominal pain Condition: Stable Prescriptions: New famotidine [Pepcid] 20 mg tablet 20 mg PO DAILY Qty: 30 0RF No Action medroxyprogesterone 150 mg/mL syringe See Rx Instructions .ROUTE .COMPLEX Qty: 1 0RF Dose Instruction: INJECT 1ML INTRAMUSCULARLY EVERY 3 MONTHS Rx Instructions: INJECT 1ML INTRAMUSCULARLY EVERY 3 MONTHS hydrocodone-acetaminophen 5-325 mg tablet 1 tab PO Q6H PRN (Reason: pain) Qty: 20 0RF promethazine 25 mg tablet 25 mg PO Q6H PRN (Reason: nausea and vomiting) Qty: 20 0RF Discharge Orders: Discharge ED (Routine); Ordered 07/11/25 Ordered By: Maxim Anthony Patient Instructions: Abdominal Pain (ED), Patient Portal & [place] Instructions Print Language: Turkish Coding Level of Care Code ED Meat Smoker for Javad Winchester
[2025-07-11 02:05] LABS: Hematocrit 44.5 % (36-47); Hemoglobin 14.40 g/dL (11.27-16.99); Mean Corpuscular HGB Conc 32.4 g/dL (30-55); Mean Corpuscular Hemoglobin 26.7 pg (27-33); Mean Corpuscular Volume 82.6 fl (85-98); Nucleated Red Blood Cells % 0 %; Platelet Count 301 10^3/cmm (157-399); Red Blood Count 5.39 10^6/uL (3.85-5.65); White Blood Count 10.45 10^3/uL (3.29-11.43)
[2025-07-11 02:15] VITALS: BP 136/84; PULSE 67; O2SAT 96
[2025-07-11 02:26] LABS: Alanine Aminotransferase 11 U/L (0-33); Albumin Level 4.6 g/dL (3.5-5.2); Alkaline Phosphatase 76 U/L (35-105); Anion Gap 15.9 (5-19); Aspartate Amino Transferase 13 U/L (0-32); Blood Urea Nitrogen 10 mg/dL (6-20); Calcium 9.1 mg/dL (8.5-10.5); Carbon Dioxide 22 mmol/L (22-29); Chloride 106 mmol/L (98-107); Creatinine Clr Calc Pharmacy 97.9151; Globulin 2.9 g/dL (1.3-4.6); Glucose 101 mg/dL (65-115); Lipase 25 U/L (13-60); Osmolality Calculated 289 mOsm/kg (285-295); Potassium 3.9 mmol/L (3.5-5.1); Sodium 140 mmol/L (136-145); Total Protein 7.5 g/dL (6.6-8.7)
[2025-07-11 02:31] LABS: HCG, Serum Qual Negative (Negative)
[2025-07-11] MEDS: lidocaine 2% viscous 15 ML, aluminum-mag hydrox-simethicon 30 ML, sucralfate oral liq 1 GM PO (02:37)
[2025-07-11] MEDS: iohexol 350 mg/mL 500 mL Btl (per mL) IV (02:48)
[2025-07-11 03:33] VITALS: BP 105/63; PULSE 63; O2SAT 100
[2025-07-11 03:46] VITALS: BP 105/63; PULSE 82; O2SAT 94
== END 2025-07-11 04:21 | disposition home or self-care (01) ==
PROVIDERS: Emergency Provider Emergency Medicine
DX: R10.9 Unspecified abdominal pain (principal); F17.290 Nicotine dependence, other tobacco product, uncomplicated
CPT/HCPCS: 74177; 80053; 83690; 84703; 85025; 96361; 96374; 96375; 99285; J0780; J1885; J7030; J9999